=== PATIENT | female | born 1970 | race Caucasian/White ===

== ENCOUNTER → 2020-04-10 08:11 | Outpatient (CLI) | payer MEDICARE, SELFPAY ==
[2020-03-31 10:34] VITALS: BMI 27.4
--- NOTE | 2020-04-10 08:14 | MRI_ITS ---
STUDY: MRI CERVICAL SPINE WITHOUT CONTRAST REASON FOR EXAM: Female, 50 years old. Pain TECHNIQUE: Standardized fat and water weighted pulse sequences were obtained in the sagittal and axial planes. COMPARISON: [address] FINDINGS: Examination is mildly degraded due to metallic artifact of C4-C7 ACDF. Diagnostic information is available. However, vertebral bodies themselves are obscured. Craniocervical junction is intact and aligned. There is grade 1 anterolisthesis of C6 on C7, approximately 3 -- 4 mm. The rest of the spine is aligned. Diffuse marrow is normal. Prevertebral and posterior paraspinous soft tissues are normal. C2-C3 has patent canal and foramina. C3-C4 has patent canal and foramina. C4-C5 has patent canal and foramina. C5-C6 has patent canal and foramina. C6-C7 has uncinate and facet hypertrophy and disc and osteophyte. There is minor canal stenosis and mild impression on the ventral cord. Ventral CSF is effaced well dorsal CSF is preserved. Foramina are mildly stenotic. C7-T1 has patent canal and foramina. Spinal cord is normal in size and signal with minor flattening ventrally against the C6-C7 spondylosis. Appearance is stable since prior. MRI/Spine Cervical (Routine) IMPRESSION: 1. No acute findings. 2. Stable appearance since 2012. 3. Mild ventral impression on the cord at C6-C7 without thecal sac stenosis. 4. C4-C7 ACDF. If evaluation of hardware is desired refer to CT. 5. Mild age expected degenerative changes. Electronically Signed: Doretha Wong MD at 17:58 EST Tel , Service support ,
== END ==
LOC: MRI 08:13
PROVIDERS: PCP Family Medicine; Referring Provider Orthopaedic Surgery; Visit Provider Orthopaedic Surgery
DX: Z98.1 Arthrodesis status (principal)
CPT/HCPCS: 72141

== ENCOUNTER 2020-06-05 18:59 | Emergency (ER) | payer MEDICARE, SELFPAY ==
[2020-04-12 09:20] VITALS: BMI 27.4
[2020-06-05 19:00] VITALS: BP 167/120; PULSE 137; RESP 16; TEMP 36.9; O2SAT 98; BMI 27.4
--- NOTE | 2020-06-05 19:59 | EKG12_ITS ---
Test Reason : WEAKNESS Blood Pressure : / mmHG Vent. Rate : 130 BPM Atrial Rate : 130 BPM P-R Int : 138 ms QRS Dur : 078 ms QT Int : 316 ms P-R-T Axes : 075 067 041 degrees QTc Int : 465 ms Sinus tachycardia Right atrial enlargement Poor R wave progression Borderline ECG Confirmed by LILLY ROCHA, LONA ([id number]), technical editor AMELIA ORANTES ([id number]) on 06/08/2020 11:14:25 AM Referred By: FARAZ Confirmed By:LONA CARR MD
[2020-06-05 20:00] VITALS: BP 159/106
--- NOTE | 2020-06-05 20:00 | EDS_ITS ---
HPI <Dr. Ze Charles MD - Last Filed: 06/05/20 22:43> History of Present Illness Chief Complaint: Weakness Informant: patient Onset/Context/Timing Onset: Today Context: Gradual Onset Timing: Continuous Quality: fatigue Location: all over Current Severity: Severe Maximum Severity: Severe Worsened by: nothing Relieved by: nothing Associated Symptoms Associated Symptoms: dry mouth Narrative Narrative: Patient states she is feeling very fatigued. She has chronic pain in her neck after a fusion that did not go well and she states the chronic pain all over her body from her fibromyalgia is worse than the pain in her neck, but all of that is chronic and stable and not worse than usual. She has no other specific symptoms, see ROS. She has had no contact with anyone with Covid that she knows of. She has not had Covid that she knows of, and she had the first Pfizer vaccine several months ago, and skipped the second 1 because too busy. She admits that she is not really not had anything to drink all day today. She does not have a known history of high blood pressure. PFSH <Dr. Ze Charles MD - Last Filed: 06/05/20 22:43> [facility] Medical History Chronic pain Home Medications alprazolam 1 mg PO BID PRN PRN 01/20/16 [History Last Taken Unknown] oxycodone 10 mg PO Q6H PRN PRN 01/20/16 [History Last Taken 01/21/16 10:00] zolpidem 10 mg tablet 10 mg PO QHS PRN tab 03/31/20 [History Last Taken Unknown] milnacipran [Savella] 100 mg PO BID 06/05/20 [History Last Taken Unknown] Allergy/AdvReac Type Severity Reaction Status Date / Time tramadol [From Ultram] Allergy Vomiting Verified 01/23/16 07:45 acetaminophen AdvReac Upset Verified 01/23/16 07:45 [From Darvocet-N] Stomach propoxyphene AdvReac Upset Verified 01/23/16 07:45 [From Darvocet-N] Stomach Social History Smoking Status: Former smoker ROS <Dr. Ze Charles MD - Last Filed: 06/05/20 22:43> ROS ED Constitutional Constitutional ED: Reports malaise and weakness; Denies chills, fever(s) or sweats Eyes Eyes: Denies change in vision or diplopia ENT ENT ED: Denies rhinorrhea or sore throat Cardiovascular Cardiovascular: Denies chest pain or palpitations Respiratory/Chest Respiratory/Chest: Denies cough or dyspnea Gastrointestinal Gastrointestinal: Denies abdominal pain, diarrhea, nausea or vomiting Genitourinary Genitourinary ED: Denies dysuria or hematuria Musculoskeletal Musculoskeletal: Reports myalgias and neck pain; Denies back pain Integumentary Denies abscess or rash Neurologic Neurologic: Denies headache(s), paresthesias or weakness Psychiatric Psychiatric: Denies anxiety or suicidal thoughts EXAM <Dr. Ze Charles MD - Last Filed: 06/05/20 22:43> Physical Exam Const Vital Signs: 06/05/20 19:00 06/05/20 19:17 06/05/20 20:00 Temperature 98.4 F Temperature Source Temporal Pulse Rate 137 H Respiratory Rate 16 Respiratory Effort Normal Non-Labored Respiratory Pattern Normal Blood Pressure 167/120 H 159/106 H Blood Pressure Mean 135 123 Pulse Ox 98 Oxygen Delivery Method Room Air 06/05/20 20:59 06/05/20 22:02 Temperature Temperature Source Pulse Rate 117 H 114 H Respiratory Rate 15 15 Respiratory Effort Respiratory Pattern Blood Pressure 165/105 H 174/117 H Blood Pressure Mean 125 136 Pulse Ox 98 97 Oxygen Delivery Method Room Air Room Air Positive well nourished and well developed General Appearance ED: well developed and NAD HEENT Reports moist mucous membranes normocephalic and atraumatic Eyes PERRL and EOMs intact bilaterally Neck full ROM and supple Resp normal respiratory effort and clear to auscultation bilaterally Cardio regular rate, regular rhythm and no murmurs Rate: tachycardic GI non-tender and non-distended Auscultation: normoactive bowel sounds Palpation: soft Back/Spine no CVA tenderness General Back: other FROM Extremity normal to inspection General Extremety ED: Negative for edema, pulses abnormal or tenderness General Extremity: Negative for edema or pulses abnormal Neuro oriented x3, CN's II-XII intact bilaterally and no sensory deficits noted Sensorium / Orientation: awake and alert Motor Exam: strength 5/5 throughout Psych mental status grossly normal Mood & Affect: anxious Skin no rashes or lesions noted and no wounds <Dr. Mikael Valles MD - Last Filed: 06/05/20 22:56> Physical Exam Const Vital Signs: 06/05/20 19:00 06/05/20 19:17 06/05/20 20:00 Temperature 98.4 F Temperature Source Temporal Pulse Rate 137 H Respiratory Rate 16 Respiratory Effort Normal Non-Labored Respiratory Pattern Normal Blood Pressure 167/120 H 159/106 H Blood Pressure Mean 135 123 Pulse Ox 98 Oxygen Delivery Method Room Air 06/05/20 20:59 06/05/20 22:02 Temperature Temperature Source Pulse Rate 117 H 114 H Respiratory Rate 15 15 Respiratory Effort Respiratory Pattern Blood Pressure 165/105 H 174/117 H Blood Pressure Mean 125 136 Pulse Ox 98 97 Oxygen Delivery Method Room Air Room Air MDM <Dr. Ze Charles MD - Last Filed: 06/05/20 22:43> MDM MDM Narrative Medical decision making narrative: Patient has nonspecific symptoms of fatigue, she does not have symptoms of endorgan damage if her symptoms are related or caused by her high blood pressure. We rechecked it it is still elevated in the 160s, so considering this causal relationship, she was given clonidine 0.1 mg, 1 L of IV fluid, and observed. She started complaining of a severe increase in her whole body fibromyalgia pain and states that she forgot to take her Savella today which she takes twice daily for fibromyalgia, so she took one of her own Percocet 10 mg tablets and on reevaluation her pain is improved but she vomited, blood pressure has gone up to 174/117, and she states she has a bit of a headache now. Her heart rate is come down to around 105-110. She was ordered Reglan and hydralazine, both IV. Now, mother is stating that they had been checking her blood pressure for the last couple days intermittently, and they had systolic readings as high as 180 which is very unusual for her, which they did not relate in the initial interview. I am apprehensive about giving her IV narcotics at this time since I do not want to make her headache worse, although it is certainly possible that she is having a flareup of fibromyalgia which is causing her blood pressure to go up, but given this latter history I suspect it is the opposite. Lab Data Attestation: I reviewed the patient's lab results. Labs: Laboratory Results - last 24 hr 06/05/20 06/05/20 06/05/20 20:13 20:13 20:44 WBC 9.3 RBC 4.86 Hgb 15.3 H Hct 44.6 MCV 91.8 MCH 31.5 MCHC 34.3 RDW Std Deviation 41.2 RDW Coeff of Jade 12.3 Plt Count 267 MPV 9.1 Immature Gran % (Auto) 0.200 Neut % (Auto) 90.8 H Lymph % (Auto) 4.3 L Lyon % (Auto) 4.2 Eos % (Auto) 0.3 Baso % (Auto) 0.2 Absolute Neuts (auto) 8.4 H Absolute Lymphs (auto) 0.40 L Nucleated RBC % 0 Differential Comment SCANNED Sodium 138 Potassium 3.9 Chloride 105 Carbon Dioxide 27.0 Anion Gap 6 BUN 12 Creatinine 0.80 Estim Creat Clear Calc 71.03 Est GFR (MDRD) Af Amer 97 Est GFR (MDRD) Non-Af 81 BUN/Creatinine Ratio 15.1 Glucose 135 H Calcium 9.0 Troponin I < 0.015 Urine Color Yellow Urine Clarity Clear Urine pH 6.0 Ur Specific [place] 1.015 Urine Protein Negative Urine Glucose (UA) Normal Urine Ketones Negative Urine Occult Blood 250 H Urine Nitrite Negative Urine Bilirubin Negative Urine Urobilinogen Normal Ur Leukocyte Esterase Negative Urine RBC 0-5 SEEN Urine WBC 0-5 SEEN Ur Squamous Epith Cells 0-5 SEEN Urine Bacteria 0 SEEN Urine Mucus 0 SEEN EKG Initial EKG: Attestation: I personally reviewed and interpreted this EKG as follows: Interpretation: No Acute Injury Pattern and Sinus Tachycardia (otherwise normal) <Dr. Mikael Valles MD - Last Filed: 06/05/20 22:56> [facility] Lab Data Labs: Laboratory Results - last 24 hr 06/05/20 06/05/20 06/05/20 20:13 20:13 20:44 WBC 9.3 RBC 4.86 Hgb 15.3 H Hct 44.6 MCV 91.8 MCH 31.5 MCHC 34.3 RDW Std Deviation 41.2 RDW Coeff of Jade 12.3 Plt Count 267 MPV 9.1 Immature Gran % (Auto) 0.200 Neut % (Auto) 90.8 H Lymph % (Auto) 4.3 L Lyon % (Auto) 4.2 Eos % (Auto) 0.3 Baso % (Auto) 0.2 Absolute Neuts (auto) 8.4 H Absolute Lymphs (auto) 0.40 L Nucleated RBC % 0 Differential Comment SCANNED Sodium 138 Potassium 3.9 Chloride 105 Carbon Dioxide 27.0 Anion Gap 6 BUN 12 Creatinine 0.80 Estim Creat Clear Calc 71.03 Est GFR (MDRD) Af Amer 97 Est GFR (MDRD) Non-Af 81 BUN/Creatinine Ratio 15.1 Glucose 135 H Calcium 9.0 Troponin I < 0.015 Urine Color Yellow Urine Clarity Clear Urine pH 6.0 Ur Specific [place] 1.015 Urine Protein Negative Urine Glucose (UA) Normal Urine Ketones Negative Urine Occult Blood 250 H Urine Nitrite Negative Urine Bilirubin Negative Urine Urobilinogen Normal Ur Leukocyte Esterase Negative Urine RBC 0-5 SEEN Urine WBC 0-5 SEEN Ur Squamous Epith Cells 0-5 SEEN Urine Bacteria 0 SEEN Urine Mucus 0 SEEN Discharge Plan Triage Chief Complaint: Weakness ED Provider: Mikael Valles Dx/Rx/DC Orders Clinical Impression: Accelerated hypertension, Fibromyalgia, Generalized weakness Prescriptions: No Action zolpidem 10 mg tablet 10 mg PO QHS PRN (Reason: Sleep) RF: 0 alprazolam 1 MG tablet 1 mg PO BID PRN PRN (Reason: Anxiety) RF: 0 oxycodone 10 MG/0.5 ML concentrate 10 mg PO Q6H PRN PRN (Reason: Pain) RF: 0 Savella 100 mg Tablet 100 mg PO BID RF: 0 Primary Care Provider: Troy Amezquita Referrals: Troy Amezquita MD [Primary Care Provider] -
[2020-06-05] MEDS: 0.9% Normal Saline 1,000 ML 1000 ML IV (20:15)
[2020-06-05 20:24] LABS: Absolute Neutrophil Count 8.4 X10^3/uL (2.0-7.7); Basophil# 0.02 X10^3/uL; Basophil% 0.2 % (0-1); Eosinophil# 0.03 X10^3/uL; Eosinophils% 0.3 % (0-5); Hematocrit 44.6 % (37-47); Hemoglobin 15.3 g/dL (12.0-15.0); Lymphocyte % 4.3 % (19-41); Mean Corp Hgb Conc 34.3 g/dL (32-36); Mean Corpuscular Hgb 31.5 pg (27.0-32.0); Mean Corpuscular Volume 91.8 fL (81-99); Mean Platelet Vol. 9.1 fl (6.2-12.0); Monocyte# 0.39 X10^3/uL; Monocyte% 4.2 % (0-10); NRBC Flagged by Analyzer 0 % (0-5); Neutrophil # 8.44 X10^3/uL (2.7-7.7); Neutrophil % 90.8 % (47-70); POSITIVE DIFFERENTIAL YES; Platelet Count 267 K/mm3 (150-450); RBC Distribution Width CV 12.3 % (11.6-14.6); RBC Distribution Width SD 41.2 fl (35.1-43.9); Red Blood Count 4.86 M/mm3 (4.2-5.4); White Blood Count 9.3 K/mm3 (4.4-11.0)
[2020-06-05 20:27] LABS: Differential Indicated SCAN CRITERIA MET
[2020-06-05 20:41] LABS: Anion Gap 6 (5-15); BUN 12 mg/dL (7-18); BUN/Creat Ratio 15.1 RATIO (10-20); Chloride 105 mmol/L (98-107); EST Glomerular Filtration Rate 81 mL/min (>60); Est Glom Filt Rate - Afr Amer 97 mL/min (>60); Estimated Creatinine Clearance 71.03 ml/min; Glucose 135 mg/dL (74-106); Potassium 3.9 mmol/L (3.5-5.1); Sodium Level 138 mmol/L (136-145)
[2020-06-05 20:49] LABS: Bacteria 0 SEEN /hpf (None Seen); Mucous, Urine 0 SEEN /hpf (<or=2+)
[2020-06-05 20:51] LABS: Color, Urine Yellow (Yellow); Glucose, Dipstick Normal (Normal); Ketone-Dipstick Negative (Negative); Leukocyte Esterase-Dipstick Negative /ul (Negative); Nitrite-Dipstick Negative (Negative); Occult Blood-Urine 250 /ul (Negative); Protein-Dipstick Negative (Negative); Specific Gravity, Urine 1.015 (1.002-1.030); Urine Bilirubin Dipstick Negative (Negative); Urine Clarity Clear (Clear); Urine Urobilinogen Normal (Normal)
[2020-06-05 20:53] LABS: Differential Comment SCANNED
[2020-06-05 20:59] VITALS: BP 165/105; PULSE 117; RESP 15; O2SAT 98
[2020-06-05 21:02] LABS: Red Blood Cells-Urine 0-5 SEEN /hpf (0-5); Squamous Epithelial Cells - UA 0-5 SEEN /hpf (5-10); White Blood Cells 0-5 SEEN /hpf (0-5)
[2020-06-05] MEDS: cloNIDine HCl 0.1 MG Tablet PO (21:35)
[2020-06-05 22:02] VITALS: BP 174/117; PULSE 114; RESP 15; O2SAT 97
[2020-06-05] MEDS: Metoclopramide 10 MG/2 ML Vial 5 MG IV (22:30)
[2020-06-05] MEDS: hydrALAZINE 20 MG/ML Vial 10 MG IV (22:32)
[2020-06-05 23:53] VITALS: BP 181/106; PULSE 129; RESP 15; O2SAT 99
[2020-06-06] MEDS: HYDROmorphone 1 MG/ML Syringe IV (00:21)
[2020-06-06 00:25] VITALS: BP 175/117; PULSE 137; RESP 15; O2SAT 100
[2020-06-06 01:12] VITALS: BP 158/110
[2020-06-06] MEDS: DiphenhydrAMINE 50 MG/ML Syringe 25 MG IV (01:48)
[2020-06-06] MEDS: Metoclopramide 10 MG/2 ML Vial 5 MG IV (01:50)
[2020-06-06] MEDS: Ketorolac 30 MG/ML Syringe IV (01:51)
[2020-06-06 01:53] VITALS: BP 175/111; PULSE 127; RESP 15; O2SAT 95
[2020-06-06 02:40] VITALS: BP 175/111
== END 2020-06-06 02:50 | disposition home or self-care (01) ==
PROVIDERS: Emergency Medicine; Emergency Provider Emergency Medicine; PCP Family Medicine
DX: I10 Essential (primary) hypertension (principal); M79.7 Fibromyalgia; R53.1 Weakness; Z87.891 Personal history of nicotine dependence
CPT/HCPCS: 80048; 81001; 84484; 85025; 93005; 96374; 96375; 96376; 99283; J7030; A4216

== ENCOUNTER 2023-03-21 21:22 | Emergency (ER) | payer MEDICARE, SELFPAY ==
[2023-03-21 21:23] VITALS: BP 181/112; PULSE 115; RESP 18; TEMP 36.6; O2SAT 98; BMI 27.8
[2023-03-21 21:50] VITALS: BP 202/112; PULSE 96; RESP 10
--- NOTE | 2023-03-21 22:11 | CT_ITS ---
STUDY: CT BRAIN WITHOUT CONTRAST REASON FOR EXAM: Female, 53 years old. headache RADIATION DOSAGE (If Supplied By Facility): CTDIvol = ( 44.99 ) mGy, DLP = ( 779.24 ) mGycm TECHNIQUE: Transaxial CT imaging of the brain was performed without administration of intravenous contrast material. Individualized dose optimization techniques were used for this CT. COMPARISON: No relevant priors. FINDINGS: Normal soft tissue structures. Normal calvarium. Normal size ventricles and extra-axial spaces for the patient''s age. Normal white matter tracts of the cerebral hemispheres. Normal basal ganglia and thalami. Normal brainstem. Normal cerebellum. There is no intracranial hemorrhage. There are no findings of an acute ischemic infarction. Normal visualized paranasal sinuses. CT/Brain/Head without Contrast IMPRESSION: Normal unenhanced CT scan of the brain. Electronically Signed: Jose R Coello MD at 23:33 EST ,
--- NOTE | 2023-03-21 22:11 | EKG12_ITS ---
Test Reason : DYSRHYTHMIA Blood Pressure : / mmHG Vent. Rate : 083 BPM Atrial Rate : 083 BPM P-R Int : 172 ms QRS Dur : 112 ms QT Int : 376 ms P-R-T Axes : 071 059 028 degrees QTc Int : 441 ms Normal sinus rhythm Normal ECG Confirmed by Yazan Tai ([id number]), video editor AMELIA ORANTES ([id number]) on 03/22/2023 8:10:58 AM Referred By: Confirmed By:Yazan Tai
[2023-03-21] MEDS: Labetalol (Prefilled) 20 MG/4 ML 10 MG IV ×2 (22:28→23:51)
[2023-03-21] MEDS: cloNIDine HCl 0.1 MG Tablet 0.100000000000000006 MG PO (22:28)
--- OUTSIDE RECORDS SUMMARY | 2023-03-21 22:32 | XMS RPT_ITS | CCD ---
Author Name Unknown Address [address] [place] [address] [id number] [place] [address] Organization [facility] Care Team Providers Care Bus Operator Name Role Phone Devorah Stringer MD Primary Care Provider DEVORAH STRINGER Primary Care Unavailable JUANY ROACH Attending Unavailable Devorah Stringer MD Primary Care Provider FIDELINA, YASMIN Attending Unavailable DEVORAH STRINGER Primary Care Unavailable FIDELINA, YASMIN Attending Unavailable DEVORAH STRINGER Primary Care Unavailable FIDELINA, YASMIN Attending Unavailable DEVORAH STRINGER Primary Care Unavailable FIDELINA, YASMIN Attending Unavailable DEVORAH STRINGER Primary Care Unavailable FIDELINA, YASMIN Attending Unavailable DEVORAH STRINGER Primary Care Unavailable FIDELINA, YASMIN Attending Unavailable DEVORAH STRINGER Primary Care Unavailable MARLINE TOMAS Attending Unavailable DEVORAH STRINGER Primary Care Unavailable FIDELINA, YASMIN Attending Unavailable DEVORAH STRINGER Primary Care Unavailable FIDELINA, YASMIN Attending Unavailable DEVORAH STRINGER Primary Care Unavailable FIDELINA, YASMIN Attending Unavailable DEVORAH STRINGER Primary Care Unavailable FIDELINA, YASMIN Attending Unavailable DEVORAH STRINGER Primary Care Unavailable Allergies Allergy Classification Reported Allergen(s) Allergy Type Date of Onset Reaction(s) Facility (20 sources) traMADol; Translations: [TRAMADOL HCL] Drug Allergy 5 Vomiting [facility] Work Phone: (20 sources) Propoxyphene N-Acetaminophen Drug Intolerance 1 GI Upset [facility] (20 sources) Seasonal allergy; Translations: [SEASONAL ALLERGIES] Allergy to substance 6 Unknown [facility] (20 sources) traMADol; Translations: [TRAMADOL] Drug Allergy 5 Other: See Comments [facility] Medications Current Medications Medication Drug Class(es) Dates Sig (Normalized) Sig (Original) 168 hr buprenorphine 0.015 mg/hr transdermal system (20 sources) Partial Opioid Agonist Start: 03-01-2023 End: 03-29-2023 apply 1 dose transdermal route every week buprenorphine (BUTRANS) 15 mcg/hour patch Indications: Other chronic pain Apply 1 Patch as directed one time a week for 28 days. 4 Patch 0 03/01/2023 03/29/2023 Active Completed/Discontinued Medications Medication Drug Class(es) Dates Sig (Normalized) Sig (Original) ALPRAZolam 1 mg oral tablet (20 sources) Benzodiazepine take 1 tablet by rekha th once daily as needed ALPRAZolam (XANAX) 1 mg tablet Take 1 mg by mouth once daily as needed. 0 Active Problems Active Problems Problem Classification Problem Date Documented Da te Episodic/Chronic Anxiety disorders (20 sources) Panic disorder with agoraphobia; Translations: [Agoraphobia with panic disorder] Onset: 03-25-2007 09-06-2009 Chronic Complications of surgical procedures or medical care (1 source) Complication of procedure; Translations: [Complication of surgical and medical care, unspecified, initial encounter] Episodic Disorders of lipid metabolism (20 sources) Hyperlipidemia; Translations: [Hyperlipidemia, unspecified] Onset: 03-07-2007 09-06-2009 Chronic Essential hypertension (20 sources) Malignant hypertension; Translations: [Essential (primary) hypertension] Onset: 08-16-2021 08-16-2021 Chronic Headache; including migraine (20 sources) Migraine variants; Translations: [Other migraine, not intractable, without status migrainosus] Onset: 07-23-2006 08-02-2015 Chronic Menstrual disorders (20 sources) Excessive and frequent menstruation; Translations: [Excessive and frequent menstruation with regular cycle] Onset: 06-20-2007 09-06-2009 Chronic Mood disorders (20 sources) Recurrent major depressive episodes; Translations: [Major depressive disorder, recurrent, unspecified] Onset: 03-25-2007 09-06-2009 Chronic Osteoarthritis (20 sources) Degenerative joint disease involving multiple joints; Translations: [Polyosteoarthritis , unspecified] Onset: 07-12-2007 09-06-2009 Chronic Other aftercare (20 sources) Long-term current use of opiate analgesic drug; 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] Onset: 08-19-2021 Episodic Other connective tissue disease (1 source) Pain in right foot; Translations: [Foot pain, right] Onset: 12-07-2022 Episodic Other nervous system disorders (8 sources) Carpal tunnel syndrome; Translations: [Carpal tunnel syndrome, unspecified upper limb] Onset: 04-03-2014 04-03-2014 Chronic Other nervous system disorders (20 sources) Chronic pain syndrome; Translations: [Chronic pain syndrome] Onset: 01-31-2017 08-16-2021 Chronic Other nervous system disorders (20 sources) Chronic pain; Translations: [Other chronic pain] Onset: 02-16-2022 Chronic Other nervous system disorders (2 sources) Chronic pain syndrome; Translations: [Chronic pain syndrome] Onset: 09-14-2021 Chronic Other nervous system disorders (1 source) Other chronic pain; Translations: [Other chronic pain] Onset: 02-16-2022 Chronic Other non-traumatic joint disorders (1 source) Pain in right knee; Translations: [Pain in joint, lower leg] Episodic Other non-traumatic joint disorders (1 source) Shoulder pain; Translations: [Pain in right shoulder] Episodic Other non-traumatic joint disorders (1 source) Pain in right shoulder; Translations: [Pain in joint, shoulder region] 11-28-2022 Episodic Other screening for suspected conditions (not mental disorders or infectious disease) (5 sources) Patient encounter status; Translations: [Encounter for screening mammogram for malignant neoplasm of breast] Onset: 10-25-2015 Episodic Spondylosis; intervertebral disc disorders; other back problems (20 sources) Pain in cervical spine; Translations: [Cervical disc disorder, unspecified, unspecified cervical region] Onset: 10-11-2011 10-11-2011 Chronic Substance-related disorders (20 sources) Continuous opioid dependence; Translations: [Opioid dependence, uncomplicated] Onset: 04-12-2015 08-16-2021 Chronic Past or Other Problems Problem Classification Problem Date Documented Date Episodic/Chronic Calculus of urinary tract (20 sources) Kidney stone; Translations: [Calculus of kidney] Onset: 12-06-2006 09-06-2009 Episodic Complication of device; implant or graft (20 sources) Pseudarthrosis after fusion or arthrodesis; Translations: [Nonunion of arthrodesis] Onset: 07-23-2013 07-23-2013 Episodic Deficiency and other anemia (8 sources) Pernicious anemia; Translations: [Vitamin B12 deficiency anemia due to intrinsic factor deficiency] Onset: 05-20-2007 09-06-2009 Episodic Malaise and fatigue (20 sources) Asthenia; Translations: [Weakness] Onset: 08-16-2021 08-16-2021 Episodic Nutritional deficiencies (1 source) Cobalamin deficiency; Translations: [Deficiency of other specified B group vitamins] Onset: 04-12-2015 08-16-2021 Episodic Other aftercare (1 source) 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; Translations: [[facility]DC (current) use of opiate analgesic] Onset: 08-19-2021 Episodic Other connective tissue disease (20 sources) Fibromyalgia; Translations: [Fibromyalgia] Onset: 10-11-2011 10-11-2011 Episodic Other connective tissue disease (20 sources) History of cervical spine fusion; Translations: [Arthrodesis status] Onset: 07-03-2013 07-03-2013 Episodic Other connective tissue disease (20 sources) Disorder of rotator cuff; Translations: [Unspecified rotator cuff tear or rupture of unspecified shoulder, not specified as traumatic] Onset: 08-24-2020 08-16-2021 Episodic Other connective tissue disease (2 sources) Fibromyalgia; Translations: [Fibromyalgia] Onset: 10-11-2011 Episodic Other connective tissue disease (1 source) Unspecified rotator cuff tear or rupture of unspecified shoulder, not specified as traumatic; Translations: [Rotator cuff syndrome, unspecified laterality] Onset: 08-16-2021 Episodic Spondylosis; intervertebral disc disorders; other back problems (20 sources) Cervical radiculitis; Translations: [Radiculopathy, cervical region] Onset: 07-03-2013 07-03-2013 Episodic Results Test Name Value Interpretation Reference Range Facil ity Vital Signs Date Time Vital Sign Value Performing Clinician Faci litaleksandar 11-18-2021 12:10040 Body height 165.1 cm Robb Cleaning PA-C Work Phone: [facility] 11-18-2021 12:10-040 Body weight 68.04 kg Robb Cleaning PA-C Work Phone: [facility] 11-18-2021 12:10-0400 Diastolic blood pressure 79 mm[Hg] Robb Cleaning PA-C Work Phone: [facility] 11-18-2021 12:10-0400 Heart rate 124 /min Robb Cleaning PA-C Work Phone: [facility] 11-18-2021 12:10-0400 SaO2% (BldA) [Mass fraction] 100 % Robb Cleaning PA-C Work Phone: [facility] 11-18-2021 12:10-0400 Systolic blood pressure 112 mm[Hg] Robb Cleaning PA-C Work Phone: [facility] 11-14-2021 10:11-0400 Body height 164.6 cm Jessica Henderson DO Work Phone: [facility] 11-14-2021 10:11-0400 Body weight 68.95 kg Jessica Henderson DO Work Phone: [facility] 11-14-2021 10:11-0400 Diastolic blood pressure 88 mm[Hg] Jessica Henderson DO Work Phone: [facility] 11-14-2021 10:11-0400 Heart rate 120 /min Jessica Henderson DO Work Phone: [facility] 11-14-2021 10:11-0400 Respiratory rate 19 /min Jessica Henderson DO Work Phone: [facility] 11-14-2021 10:11-0400 SaO2% (BldA) [Mass fraction] 98 % Jessica Henderson DO Work Phone: [facility] 11-14-2021 10:11-0400 Systolic blood pressure 135 mm[Hg] Jessica Henderson DO Work Phone: [facility] 10-28-2021 11:06-0400 Body weight 70.31 kg Juany Roach HAT BLOCKING MACHINE OPERATOR.SAMPLE STEAMER Work Phone: [facility] 10-28-2021 11:06-0400 Diastolic blood pressure 92 mm[Hg] Juany Roach HAT BLOCKING MACHINE OPERATOR.SAMPLE STEAMER Work Phone: [facility] 10-28-2021 11:06-0400 Heart rate 109 /min Juany Tannhof HAT BLOCKING MACHINE OPERATOR.SAMPLE STEAMER Work Phone: [facility] 10-28-2021 11:06-0400 Respiratory rate 16 /min Juany Tannhof HAT BLOCKING MACHINE OPERATOR.SAMPLE STEAMER Work Phone: [facility] 10-28-2021 11:06-0400 SaO2% (BldA) [Mass fraction] 97 % Juany Morrohof HAT BLOCKING MACHINE OPERATOR.SAMPLE STEAMER Work Phone: [facility] 10-28-2021 11:06-0400 Systolic blood pressure 122 mm[Hg] Juany Tannhof HAT BLOCKING MACHINE OPERATOR.SAMPLE STEAMER Work Phone: [facility] 12-21-2020 13:35-0500 Body weight 69.4 kg Yasmin Fidelina HAT BLOCKING MACHINE OPERATOR.SAMPLE STEAMER Work Phone: [facility] 12-21-2020 13:35-0500 Diastolic blood pressure 91 mm[Hg] Yasmin Fidelina HAT BLOCKING MACHINE OPERATOR.SAMPLE STEAMER Work Phone: [facility] 12-21-2020 13:35-0500 Heart rate 107 /min Yasmin Fidelina HAT BLOCKING MACHINE OPERATOR.SAMPLE STEAMER Work Phone: [facility] 12-21-2020 13:35-0500 Respiratory rate 19 /min Yasmin Fidelina HAT BLOCKING MACHINE OPERATOR.SAMPLE STEAMER Work Phone: [facility] 12-21-2020 13:35-0500 SaO2% (BldA) [Mass fraction] 97 % Yasmin Fidelina HAT BLOCKING MACHINE OPERATOR.SAMPLE STEAMER Work Phone: [facility] 12-21-2020 13:35-0500 Systolic blood pressure 131 mm[Hg] Yasmin Fidelina HAT BLOCKING MACHINE OPERATOR.SAMPLE STEAMER Work Phone: [facility] Encounters Encounter Date Encounter Type Care Provider Facility Start: 03-13-2023 Telephone encounter Yasmin saleemo HAT BLOCKING MACHINE OPERATOR.SAMPLE STEAMER Work Phone: Pain Management Procedures Date Procedure Procedure Detail Performing Clinician Start: 01-14-2018 Lipid 1996 panel - S serena or Plasma Yasmin Akbaro HAT BLOCKING MACHINE OPERATOR.SAMPLE STEAMER Work Phone: Start: 10-13-2011 Mammography Yasmin de M arco HAT BLOCKING MACHINE OPERATOR.SAMPLE STEAMER Work Phone: Plan of Treatment Date Care Activity Detail Author Start: 12-08-2023 Covid-19 Vaccine (#1) Covid-19 Vacci ne (#1) [facility] Immunizations Immunization Date Immunization Notes Care Provider Fa cility 03-18-2020 influenza, injectabl e, quadrivalent, contains preservative Yasmin de Manish HAT BLOCKING MACHINE OPERATOR.SAMPLE STEAMER Work Phone: [facility] 03-18-2020 influenza virus vaccine, unspecified formulation Yasmin Fidelina HAT BLOCKING MACHINE OPERATOR.SAMPLE STEAMER Work Phone: [facility] 12-04-2017 influenza, injectabl e, quadrivalent, preservative free Yasmin Fidelina HAT BLOCKING MACHINE OPERATOR.SAMPLE STEAMER Work Phone: [facility] 12-04-2017 influenza, seasonal, injectable Yasmin de Manish HAT BLOCKING MACHINE OPERATOR.SAMPLE STEAMER Work Phone: [facility] 11-04-2014 influenza, injectabl e, quadrivalent, contains preservative Yasmin de Manish HAT BLOCKING MACHINE OPERATOR.SAMPLE STEAMER Work Phone: [facility] 11-04-2014 influenza, seasonal, injectable Yasmin Fidelina HAT BLOCKING MACHINE OPERATOR.SAMPLE STEAMER Work Phone: [facility] 12-11-2013 influenza, seasonal, injectable Yasmin de Manish HAT BLOCKING MACHINE OPERATOR.SAMPLE STEAMER Work Phone: [facility] 09-13-2006 tetanus and diphther ia toxoids, adsorbed, preservative free, for adult use (2 Lf of tetanus toxoid and 2 Lf of diphtheria toxoid) Yasmin de Manish HAT BLOCKING MACHINE OPERATOR.SAMPLE STEAMER Work Phone: [facility] Work Phone: Payers Date Payer Category Payer Medicare [employer] [place] [id number] 2019-Present [phone] [address] [place] [address] [facility] [id number] 2019 Medicare [employer] [place] [employer] [place] [id number] 2019-Present [phone] [address] [place] [address] HMO [id number] 2019 Medicare [id number] Social History Date Type Detail Facility Start: 06-07-2011 End: 10-28-2021 Tobacco smoking status NHIS Ex-smoker [facility] End: 02-05-2001 History of tobacco use Current smoker [facility] End: 02-05-2001 History of tobacco use Cigarette Smoker [facility] Start: 07-29-2020 End: 03-01-2023 Alcohol intake Current drinker of alcohol (finding) [facility] Start: 07-29-2020 End: 06-16-2022 Alcohol intake [facility] Start: 06-19-2007 History SDOH Alcohol Comment rare [facility] Start: 1970 Sex Assigned At Female C [facility] Start: 06-07-2011 End: 10-28-2021 Tobacco use and exposure Smokeless tobacco non-user [facility] Start: 09-13-2021 End: 09-23-2021 Exposure to SARS-CoV-2 (event) Unable to assess [facility] Work Phone: Start: 10-17-2021 End: 11-18-2021 Exposure to SARS-CoV-2 (event) Not sure [facility] Start: 06-16-2022 End: 08-17-2022 Tobacco use panel [facility] Adult Depression Screening Assessment 0 [facility] Start: 02-23-2021 Gender identity Identifies as female gender (finding) [facility] Start: 02-23-2021 Sexual orientation Heterosexual (shalom bearden) [facility] Has the [employer], [employer], [employer], or [employer] threatened to shut off services in your home in past 12Mo No [facility] Are you now , , , , never or living with a partner? [facility] How often to you hav e a drink containing alcohol? Never [facility] How hard is it for y ou to pay for the very basics like food, housing, medical care, and heating Somewhat hard [facility] Do you feel stress - tense, restless, nervous, or anxious, or unable to sleep at night because your mind is troubled all the time - these days [OSQ] Very much [facility] (I/We) worried wheth er (my/our) food would run out before (I/we) got money to buy more. Sometimes true [facility] The food that (I/we) bought just didn't last, and (I/we) didn't have money to get more. Never true [facility] Clinical Notes 02-15-2009 to 03-13-2023 Telephone Encounter - Barbara Rasheed RN - 03/13/2023 8:47 AM ESTTelephone Encounter - Yasmin Kitchen APRN.CNP - 03/13/2023 7:20 AM Yasmin Cervantes APRN.CNP - 11/09/2022 8:15 AM EDT Note Date & Type Note Facility 03-13-2023 Miscellaneous Notes LMOM for pt to call the office back. My Chart message also sent. Barbara Rasheed RN March 13, 2023 8:48 AM Please call the patient for a UDS and to sign pain agreement. Order entered. Thanks documented in this encounter [facility] 03-01-2023 Note HNO ID: [id number] Author: YASMIN KITCHEN APRN.CNP Service: ? Author Type: Nurse Practitioner Type: Progress Notes Filed: 03/01/2023 09:37 Note Text: This video visit was performed via [employer] Video Visit. Patient consented to receive health care services via virtual visit for this encounter Provider Location: Non-[facility] Facility Patient Location: Patient Home or Place of Residence I have communicated my name and active licensure. The patient's identity and physical location were verified at the time of this visit. Either the patient or their legal risk control representative has been informed of the risks and benefits of -- and alternatives to -- treatment through a remote evaluation and consents to proceed with the evaluation remotely. Chief Complaint: Pain ___ History of Present Illness: Kelly Baldwin is a 53 year old year old female being seen at [facility] for a evaluation and/or management of her chronic pain. The patient was last seen virtually on 01/26/2023. She states that since the last visit symptoms have been stable. Her medical history has not changed and she denies any hospital stays or ER visits. VAS: 7/10 Pain location: neck pain, shoulders and right arm pain Timing: constant Severity: moderate Quality: aching, throbbing, sharp, burning Radiation: yes, down into shoulders/arms both arms Numbness: yes, intermittently in the hands/fingers Weakness: denies Falls: denies Alleviating Factors: pain medications, to some degree, rest Aggravating Factors: increased activity, abrupt turning of the head The patient denies any bowel or bladder dysfunction. The patient is currently prescribed butrans patch, Oxycodone, flexeril, savella and Imitrex nasal spray from our office. The last dose of Oxycodone was taken today and butrans patch is located on her right arm . The medications are partially effective. The OARRS report has been reviewed and is consistent with the patients medical history and medication intake. Last Opioid agreement effective date: 03/17/2022 Last UDS: Reviewed - No inconsistencies noted. 10/26/22 UDS INCONSISTENT(+)Zolpidem Summary Report Date Value Ref Range Status 10/26/2022 FINAL Final Comment: ==== Opiate Class, MS, Ur RFX Oxycodone Class, MS, Ur RFX ToxAssure Flex 23, Ur ==== Test Result Flag Units Drug Present Alpha-hydroxyalprazolam 77 ng/mg creat Alpha-hydroxyalprazolam is an expected metabolite of alprazolam. Source of alprazolam is a scheduled prescription medication. Oxycodone 3977 ng/mg creat Oxymorphone 1588 ng/mg creat Noroxycodone 6977 ng/mg creat Noroxymorphone 627 ng/mg creat Sources of oxycodone are scheduled prescription medications. Oxymorphone, noroxycodone, and noroxymorphone are expected metabolites of oxycodone. Oxymorphone is also available as a scheduled prescription medication. Buprenorphine 15 ng/mg creat Sources of buprenorphine include scheduled prescription medications. Zolpidem PRESENT Zolpidem Acid PRESENT Zolpidem acid is an expected metabolite of zolpidem. ==== Test Result Flag Units Ref Range Creatinine 26 mg/dL >=20 ==== Declared Medications: Medication list was not provided. ==== For clinical consultation, please call . ==== Chronic Pain Functional Assessment Tools Pain Disability Index: Pain Disability Index 12/31/2022 02/28/2023 Family/Home Responsibilities: This category includes chores or duties performed around the house (e.g. yard work), errands or favors for other family members (e.g. driving the children to school) 7 7 Recreation: This category includes hobbies, sports, and other similar leisure time activities 7 8 Social Activity: This category refers to activities which involve participation with friends and acquaintances, other than family members. It includes parties, theater, concerts, dinning out, and other social functions 7 9 Occupation: This category refers to activities that are a part of or directly related to ones' job. This includes non-paying jobs as well, such as that of a housewife or volunteer worker 7 8 Sexual Behavior: This category refers to the frequency and quality of one's sex life 8 9 Self Care: This category includes activities which involve personal maintenance and independent daily living (e.g. taking a shower, driving, getting dress, etc) 2 5 Life Support Activity: This category refers to basic-life supporting behaviors such (more content not included)... [facility] 01-26-2023 Note HNO ID: [id number] Author: Yasmin Kitchen APRN.SAMPLE STEAMER Service: ? Author Type: Nurse Practitioner Type: Progress Notes Filed: 01/26/2023 2:13 PM Note Text: This video visit was performed via [employer] Video Visit. Patient consented to receive health care services via virtual visit for this encounter Provider Location: [facility] Patient Location: Patient Home or Place of Residence I have communicated my name and active licensure. The patient's identity and physical location were verified at the time of this visit. Either the patient or their legal risk control representative has been informed of the risks and benefits of -- and alternatives to -- treatment through a remote evaluation and consents to proceed with the evaluation remotely. Chief Complaint: Pain ___ History of Present Illness: Kelly Baldwin is a 53 year old year old female being seen at [facility] for a evaluation and/or management of her chronic pain. The patient was last seen virtually on 01/02/2023. She states that since the last visit symptoms have been stable. She has been feeling ill. Her medical history has not changed and she denies any hospital stays or ER visits. VAS: 6/10 Pain location: neck pain, shoulders and right arm pain Timing: constant Severity: moderate Quality: aching, throbbing, sharp, burning Radiation: yes, down into shoulders/arms both arms Numbness: yes, intermittently in the hands/fingers Weakness: denies Falls: denies Alleviating Factors: pain medications, to some degree, rest Aggravating Factors: increased activity, abrupt turning of the head The patient denies any bowel or bladder dysfunction. The patient is currently prescribed butrans patch, Oxycodone, flexeril, savella and Imitrex nasal spray from our office. The last dose of Oxycodone was taken last night and butrans patch is located on her left arm . The medications are partially effective. The OARRS report has been reviewed and is consistent with the patients medical history and medication intake. Last Opioid agreement effective date: 03/17/2022 Last UDS: Reviewed - No inconsistencies noted. 10/26/22 UDS INCONSISTENT(+)Zolpidem Summary Report Date Value Ref Range Status 10/26/2022 FINAL Final Comment: ==== Opiate Class, MS, Ur RFX Oxycodone Class, MS, Ur RFX ToxAssure Flex 23, Ur ==== Test Result Flag Units Drug Present Alpha-hydroxyalprazolam 77 ng/mg creat Alpha-hydroxyalprazolam is an expected metabolite of alprazolam. Source of alprazolam is a scheduled prescription medication. Oxycodone 3977 ng/mg creat Oxymorphone 1588 ng/mg creat Noroxycodone 6977 ng/mg creat Noroxymorphone 627 ng/mg creat Sources of oxycodone are scheduled prescription medications. Oxymorphone, noroxycodone, and noroxymorphone are expected metabolites of oxycodone. Oxymorphone is also available as a scheduled prescription medication. Buprenorphine 15 ng/mg creat Sources of buprenorphine include scheduled prescription medications. Zolpidem PRESENT Zolpidem Acid PRESENT Zolpidem acid is an expected metabolite of zolpidem. ==== Test Result Flag Units Ref Range Creatinine 26 mg/dL >=20 ==== Declared Medications: Medication list was not provided. ==== For clinical consultation, please call . ==== Chronic Pain Functional Assessment Tools Pain Disability Index: Pain Disability Index 11/09/2022 12/31/2022 Family/Home Responsibilities: This category includes chores or duties performed around the house (e.g. yard work), errands or favors for other family members (e.g. driving the children to school) 5 7 Recreation: This category includes hobbies, sports, and other similar leisure time activities 6 7 Social Activity: This category refers to activities which involve participation with friends and acquaintances, other than family members. It includes parties, theater, concerts, dinning out, and other social functions 7 7 Occupation: This category refers to activities that are a part of or directly related to ones' job. This includes non-paying jobs as well, such as that of a housewife or volunteer worker 7 7 Sexual Behavior: This category refers to the frequency and quality of one's sex life 4 8 Self Care: This category includes activities which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 zolpidem (AMBIEN) 10 mg ORAL Tab Take 1 tablet by mouth at bedtime as needed. No current facility-administered medications for this visit. I have reviewed the nurses notes and I am aware of the family/social history. Since the last evaluation the medical history has not changed. PHYSICAL EXAMINATION: VIDEO EXAM: (performed via video enabled technology) GENERAL: alert and appropriate, in no distress, well-hydrated, well nourished and happy, smiling, interactive HEAD: normocephalic, no abnormality or lesion noted RESPIRATORY: breathing non-labored NEUROLOGIC: no obvious deficit ASSESSMENT: Patient is stable. Chronic pain is persistent. Medications are helping Kelly Baldwin to have an improved quality of life. Patient compliance with Opioid Contract: patient is currently compliant Encounter Diagnosis ICD-10-CM 1. Chronic pain syndrome G89.4 oxyCODONE IR (ROXICODONE) 10 mg tab fentaNYL (DURAGESIC) 25 mcg/hr 2. Cervical back pain with evidence of disc disease M50.90 3. Fibromyalgia M79.7 4. [facility]DC (current) use of opiate analgesic Z79.891 5. Migraine variant G43.809 SUMAtriptan (IMITREX) 20 mg/actuation nasal spray PLAN: The patient understands the goal of our treatment is a reduction in pain and/or an improved level of functioning with activities of daily living. If at any time the patient does not feel the medications are helping them to achieve these goals, the medications may be discontinued. The patient reports a reduction in pain and/or an improved level of functioning with activities of daily living, denies any significant adverse effects, is compliant with the pain management agreement and there are no signs of medication misuse, abuse or diversion; therefore, the medications will be continued. Continue Fentanyl patches 25 mcg change every 72 hours Continue TENS unit. Continue Oxycodone Continue OTC stool softeners for OIC symptoms. Continue Imitrex nasal spray Continue Flexeril PRN Continue Savella. Order repeat b/l shoulder injections Follow up in 1 month Yasmin Kitchen APRN.GENIE documented in this encounter [facility] 08-19-2021 Instructions Yasmin Kitchen APRN.GENIE - 08/19/2021 10:30 AM EDT Continue Fentanyl patches 25 mcg change every 72 hours Continue TENS unit. Continue Oxycodone Continue OTC stool softeners for OIC symptoms. Continue Imitrex nasal spray Continue Flexeril PRN Continue Savella. Order b/l shoulder injections Follow up in 1 month documented in this encounter [facility] documented as of this encounter (statuses as of 05/20/2021) [facility]2010 History of Past illness Narrative* Problem Noted Date Resolved Date Routine general medical exam ination at a health care facility 02/15/2009 03/11/2012 Overview: 02/15/2009, from [facility] Routine gynecological examination 02/15/2009 03/11/2012 Overview: Dr. Rod, [facility], [facility] [place] Pain in joint, shoulder region 12/24/2007 0 02/15/2009 Cervicalgia 12/24/2007 02/15/2009 Lump or mass in breast 09/13/2006 3 Overview: May 13: repeat diagnostic in 6 months Bipolar I disorder, most rec ent episode (or current) unspecified 03/25/2007 Temporomandibular joint disorders, unspecified 02/15/2009 documented as of this encounter (statuses as of 05/26/2021) [facility] History of Past illness Narrative* Problem Noted Date Resolved Date Routine general medical exam ination at a health care facility 02/15/2009 03/11/2012 Overview: 02/15/2009, from [facility] Routine gynecological examination 02/15/2009 03/11/2012 Overview: Dr. Rod, [facility], [facility] [place] Pain in joint, shoulder region 12/24/2007 0 02/15/2009 Cervicalgia 12/24/2007 02/15/2009 Lump or mass in breast 09/13/2006 3 Overview: May 13: repeat diagnostic in 6 months Bipolar I disorder, most rec ent episode (or current) unspecified 03/25/2007 Temporomandibular joint disorders, unspecified 02/15/2009 documented as of this encounter (statuses as of 06/02/2021) [facility] History of Past illness Narrative* Problem Noted Date Resolved Date Routine general medical exam ination at a health care facility 02/15/2009 03/11/2012 Overview: 02/15/2009, from [facility] Routine gynecological examination 02/15/2009 03/11/2012 Overview: Dr. Rod, [facility], [facility] [place] Pain in joint, shoulder region 12/24/2007 0 02/15/2009 Cervicalgia 12/24/2007 02/15/2009 Lump or mass in breast 09/13/2006 3 Overview: May 13: repeat diagnostic in 6 months Bipolar I disorder, most rec ent episode (or current) unspecified 03/25/2007 Temporomandibular joint disorders, unspecified 02/15/2009 documented as of this encounter (statuses as of 06/23/2021) [facility] History of Past illness Narrative* Problem Noted Date Resolved Date Routine general medical exam ination at a health care facility 02/15/2009 03/11/2012 Overview: 02/15/2009, from [facility] Routine gynecological examination 02/15/2009 03/11/2012 Overview: Dr. Rod, [facility], [facility] [place] Pain in joint, shoulder region 12/24/2007 0 02/15/2009 Cervicalgia 12/24/2007 02/15/2009 Lump or mass in breast 09/13/2006 3 Overview: May 13: repeat diagnostic in 6 months Bipolar I disorder, most rec ent episode (or current) unspecified 03/25/2007 Temporomandibular joint disorders, unspecified 02/15/2009 documented as of this encounter (statuses as of 07/21/2021) [facility] History of Past illness Narrative* Problem Noted Date Resolved Date Routine general medical exam ination at a health care facility 02/15/2009 03/11/2012 Overview: 02/15/2009, from [facility] Routine gynecological examination 02/15/2009 03/11/2012 Overview: Dr. Rod, [facility], [facility] [place] Pain in joint, shoulder region 12/24/2007 0 02/15/2009 Cervicalgia 12/24/2007 02/15/2009 Lump or mass in breast 09/13/2006 3 Overview: May 13: repeat diagnostic in 6 months Bipolar I disorder, most rec ent episode (or current) unspecified 03/25/2007 Temporomandibular joint disorders, unspecified 02/15/2009 documented as of this encounter (statuses as of 07/23/2021) [facility] History of Past illness Narrative* Problem Noted Date Resolved Date Routine general medical exam ination at a health care facility 02/15/2009 03/11/2012 Overview: 02/15/2009, from [facility] Routine gynecological examination 02/15/2009 03/11/2012 Overview: Dr. Rod, [facility], [facility] [place] Pain in joint, shoulder region 12/24/2007 0 02/15/2009 Cervicalgia 12/24/2007 02/15/2009 Lump or mass in breast 09/13/2006 3 Overview: May 13: repeat diagnostic in 6 months Bipolar I disorder, most rec ent episode (or current) unspecified 03/25/2007 Temporomandibular joint disorders, unspecified 02/15/2009 documented as of this encounter (statuses as of 08/08/2021) [facility] History of Past illness Narrative* Problem Noted Date Resolved Date Routine general medical exam ination at a health care facility 02/15/2009 03/11/2012 Overview: 02/15/2009, from [facility] Routine gynecological examination 02/15/2009 03/11/2012 Overview: Dr. Rod, [facility], [facility] [place] Pain in joint, shoulder region 12/24/2007 0 02/15/2009 Cervicalgia 12/24/2007 02/15/2009 Lump or mass in breast 09/13/2006 3 Overview: May 13: repeat diagnostic in 6 months Bipolar I disorder, most rec ent episode (or current) unspecified 03/25/2007 Temporomandibular joint disorders, unspecified 02/15/2009 documented as of this encounter (statuses as of 08/16/2021) [facility] History of Past illness Narrative* Problem Noted Date Resolved Date Routine general medical exam ination at a health care facility 02/15/2009 03/11/2012 Overview: 02/15/2009, from [facility] Sh[facility] Routine gynecological examination 02/15/2009 03/11/2012 Overview: Dr. Rod, [facility] [place] Pain in joint, shoulder region 12/24/2007 0 02/15/2009 Cervicalgia 12/24/2007 02/15/2009 Lump or mass in breast 09/13/2006 3 Overview: May 13: repeat diagnostic in 6 months Bipolar I disorder, most rec ent episode (or current) unspecified 03/25/2007 Temporomandibular joint disorders, unspecified 02/15/2009 documented as of this encounter (statuses as of 08/19/2021) [facility] History of Past illness Narrative* Problem Noted Date Resolved Date Routine general medical exam ination at a health care facility 02/15/2009 03/11/2012 Overview: 02/15/2009, [facility] Routine gynecological examination 02/15/2009 03/11/2012 Overview: Dr. Rod, [facility] [place] Pain in joint, shoulder region 12/24/2007 0 02/15/2009 Cervicalgia 12/24/2007 02/15/2009 Lump or mass in breast 09/13/2006 3 Overview: May 13: repeat diagnostic in 6 months Bipolar I disorder, most rec ent episode (or current) unspecified 03/25/2007 Temporomandibular joint disorders, unspecified 02/15/2009 documented as of this encounter (statuses as of 09/14/2021) [facility] History of Past illness Narrative* Problem Noted Date Resolved Date Routine general medical exam ination at a health care facility 02/15/2009 03/11/2012 Overview: 02/15/2009, [facility] Routine gynecological examination 02/15/2009 03/11/2012 Overview: Dr. Rod, [facility], [facility] [place] Pain in joint, shoulder region 12/24/2007 0 02/15/2009 Cervicalgia 12/24/2007 02/15/2009 Lump or mass in breast 09/13/2006 3 Overview: May 13: repeat diagnostic in 6 months Bipolar I disorder, most rec ent episode (or current) unspecified 03/25/2007 Temporomandibular joint disorders, unspecified 02/15/2009 documented as of this encounter (statuses as of 10/20/2021) [facility] History of Past illness Narrative* Problem Noted Date Resolved Date Routine general medical exam ination at a health care facility 02/15/2009 03/11/2012 Overview: 02/15/2009, from [facility] Routine gynecological examination 02/15/2009 03/11/2012 Overview: Dr. Rod, [facility], [facility] [place] Pain in joint, shoulder region 12/24/2007 0 02/15/2009 Cervicalgia 12/24/2007 02/15/2009 Lump or mass in breast 09/13/2006 3 Overview: May 13: repeat diagnostic in 6 months Bipolar I disorder, most rec ent episode (or current) unspecified 03/25/2007 Temporomandibular joint disorders, unspecified 02/15/2009 documented as of this encounter (statuses as of 10/28/2021) [facility] History of Past illness Narrative* Problem Noted Date Resolved Date Routine general medical exam ination at a health care facility 02/15/2009 03/11/2012 Overview: 02/15/2009, from [facility] Routine gynecological examination 02/15/2009 03/11/2012 Overview: Dr. Rod, [facility] [place] Pain in joint, shoulder region 12/24/2007 0 02/15/2009 Cervicalgia 12/24/2007 02/15/2009 Lump or mass in breast 09/13/2006 3 Overview: May 13: repeat diagnostic in 6 months Bipolar I disorder, most rec ent episode (or current) unspecified 03/25/2007 Temporomandibular joint disorders, unspecified 02/15/2009 documented as of this encounter (statuses as of 11/03/2021) [facility] History of Past illness Narrative* Problem Noted Date Resolved Date Routine general medical exam ination at a health care facility 02/15/2009 03/11/2012 Overview: 02/15/2009, from [facility] M[facility] Routine gynecological examination 02/15/2009 03/11/2012 Overview: Dr. Rod, [facility] [place] Pain in joint, shoulder region 12/24/2007 0 02/15/2009 Cervicalgia 12/24/2007 02/15/2009 Lump or mass in breast 09/13/2006 3 Overview: May 13: repeat diagnostic in 6 months Bipolar I disorder, most rec ent episode (or current) unspecified 03/25/2007 Temporomandibular joint disorders, unspecified 02/15/2009 documented as of this encounter (statuses as of 11/10/2021) [facility] History of Past illness Narrative* Problem Noted Date Resolved Date Routine general medical exam ination at a health care facility 02/15/2009 03/11/2012 Overview: 02/15/2009, from [facility] Routine gynecological examination 02/15/2009 03/11/2012 Overview: Dr. Rod, [facility], [facility] [place] Pain in joint, shoulder region 12/24/2007 0 02/15/2009 Cervicalgia 12/24/2007 02/15/2009 Lump or mass in breast 09/13/2006 3 Overview: May 13: repeat diagnostic in 6 months Bipolar I disorder, most rec ent episode (or current) unspecified 03/25/2007 Temporomandibular joint disorders, unspecified 02/15/2009 documented as of this encounter (statuses as of 11/14/2021) [facility] History of Past illness Narrative* Problem Noted Date Resolved Date Routine general medical exam ination at a health care facility 02/15/2009 03/11/2012 Overview: 02/15/2009, from [facility] Routine gynecological examination 02/15/2009 03/11/2012 Overview: Dr. Rod, [facility] [place] Pain in joint, shoulder region 12/24/2007 0 02/15/2009 Cervicalgia 12/24/2007 02/15/2009 Lump or mass in breast 09/13/2006 3 Overview: May 13: repeat diagnostic in 6 months Bipolar I disorder, most rec ent episode (or current) unspecified 03/25/2007 Temporomandibular joint disorders, unspecified 02/15/2009 documented as of this encounter (statuses as of 11/16/2021) [facility] History of Past illness Narrative* Problem Noted Date Resolved Date Routine general medical exam ination at a health care facility 02/15/2009 03/11/2012 Overview: 02/15/2009, from [employer] Routine gynecological examination 02/15/2009 03/11/2012 Overview: Dr. Rod, [facility], [facility] [place] Pain in joint, shoulder region 12/24/2007 0 02/15/2009 Cervicalgia 12/24/2007 02/15/2009 Lump or mass in breast 09/13/2006 3 Overview: May 13: repeat diagnostic in 6 months Bipolar I disorder, most rec ent episode (or current) unspecified 03/25/2007 Temporomandibular joint disorders, unspecified 02/15/2009 documented as of this encounter (statuses as of 11/18/2021) [facility] History of Past illness Narrative* Problem Noted Date Resolved Date Routine general medical exam ination at a health care facility 02/15/2009 03/11/2012 Overview: 02/15/2009, from [employer] Routine gynecological examination 02/15/2009 03/11/2012 Overview: Dr. Rod, [facility], [facility] [place] Pain in joint, shoulder region 12/24/2007 0 02/15/2009 Cervicalgia 12/24/2007 02/15/2009 Lump or mass in breast 09/13/2006 3 Overview: May 13: repeat diagnostic in 6 months Bipolar I disorder, most rec ent episode (or current) unspecified 03/25/2007 Temporomandibular joint disorders, unspecified 02/15/2009 documented as of this encounter (statuses as of 12/15/2021) [facility] History of Past illness Narrative* Problem Noted Date Resolved Date Routine general medical exam ination at a health care facility 02/15/2009 03/11/2012 Overview: 02/15/2009, from [employer] Routine gynecological examination 02/15/2009 03/11/2012 Overview: Dr. Rod, [facility] [place] Pain in joint, shoulder region 12/24/2007 0 02/15/2009 Cervicalgia 12/24/2007 02/15/2009 Lump or mass in breast 09/13/2006 3 Overview: May 13: repeat diagnostic in 6 months Bipolar I disorder, most rec ent episode (or current) unspecified 03/25/2007 Temporomandibular joint disorders, unspecified 02/15/2009 documented as of this encounter (statuses as of 01/17/2022) [facility] History of Past illness Narrative* Problem Noted Date Resolved Date Routine general medical exam ination at a health care facility 02/15/2009 03/11/2012 Overview: 02/15/2009, from [facility] Routine gynecological examination 02/15/2009 03/11/2012 Overview: Dr. Rod, [facility] [place] Pain in joint, shoulder region 12/24/2007 0 02/15/2009 Cervicalgia 12/24/2007 02/15/2009 Lump or mass in breast 09/13/2006 3 Overview: May 13: repeat diagnostic in 6 months Bipolar I disorder, most rec ent episode (or current) unspecified 03/25/2007 Temporomandibular joint disorders, unspecified 02/15/2009 documented as of this encounter (statuses as of 01/19/2022) [facility] History of Past illness Narrative* Problem Noted Date Resolved Date Routine general medical exam ination at a health care facility 02/15/2009 03/11/2012 Overview: 02/15/2009, from [facility] Routine gynecological examination 02/15/2009 03/11/2012 Overview: Dr. Rod, [facility], [facility] [place] Pain in joint, shoulder region 12/24/2007 0 02/15/2009 Cervicalgia 12/24/2007 02/15/2009 Lump or mass in breast 09/13/2006 3 Overview: May 13: repeat diagnostic in 6 months Bipolar I disorder, most rec ent episode (or current) unspecified 03/25/2007 Temporomandibular joint disorders, unspecified 02/15/2009 documented as of this encounter (statuses as of 02/17/2022) [facility] History of Past illness Narrative* Problem Noted Date Resolved Date Routine general medical exam ination at a health care facility 02/15/2009 03/11/2012 Overview: 02/15/2009, from [facility] Routine gynecological examination 02/15/2009 03/11/2012 Overview: Dr. Rod, [facility] [place] Pain in joint, shoulder region 12/24/2007 0 02/15/2009 Cervicalgia 12/24/2007 02/15/2009 Lump or mass in breast 09/13/2006 3 Overview: May 13: repeat diagnostic in 6 months Bipolar I disorder, most rec ent episode (or current) unspecified 03/25/2007 Temporomandibular joint disorders, unspecified 02/15/2009 documented as of this encounter (statuses as of 03/15/2022) [facility] History of Past illness Narrative* Problem Noted Date Resolved Date Routine general medical exam ination at a health care facility 02/15/2009 03/11/2012 Overview: 02/15/2009, from [employer] Routine gynecological examination 02/15/2009 03/11/2012 Overview: Dr[facility] Rod, [facility] [place] Pain in joint, shoulder region 12/24/2007 0 02/15/2009 Cervicalgia 12/24/2007 02/15/2009 Lump or mass in breast 09/13/2006 3 Overview: May 13: repeat diagnostic in 6 months Bipolar I disorder, most rec ent episode (or current) unspecified 03/25/2007 Temporomandibular joint disorders, unspecified 02/15/2009 documented as of this encounter (statuses as of 03/17/2022) [facility] History of Past illness Narrative* Problem Noted Date Resolved Date Routine general medical exam ination at a health care facility 02/15/2009 03/11/2012 Overview: 02/15/2009, from [facility] Routine gynecological examination 02/15/2009 03/11/2012 Overview: Dr. Rod, [facility] [place] Pain in joint, shoulder region 12/24/2007 0 02/15/2009 Cervicalgia 12/24/2007 02/15/2009 Lump or mass in breast 09/13/2006 3 Overview: May 13: repeat diagnostic in 6 months Bipolar I disorder, most rec ent episode (or current) unspecified 03/25/2007 Temporomandibular joint disorders, unspecified 02/15/2009 documented as of this encounter (statuses as of 04/11/2022) [facility] History of Past illness Narrative* Problem Noted Date Resolved Date Routine general medical exam ination at a health care facility 02/15/2009 03/11/2012 Overview: 02/15/2009, from [facility] Routine gynecological examination 02/15/2009 03/11/2012 Overview: Dr. Rod, [facility] [place] Pain in joint, shoulder region 12/24/2007 0 02/15/2009 Cervicalgia 12/24/2007 02/15/2009 Lump or mass in breast 09/13/2006 3 Overview: May 13: repeat diagnostic in 6 months Bipolar I disorder, most rec ent episode (or current) unspecified 03/25/2007 Temporomandibular joint disorders, unspecified 02/15/2009 documented as of this encounter (statuses as of 04/14/2022) [facility] History of Past illness Narrative* Problem Noted Date Resolved Date Routine general medical exam ination at a health care facility 02/15/2009 03/11/2012 Overview: 02/15/2009, from [facility] Routine gynecological examination 02/15/2009 03/11/2012 Overview: Dr. Rod, [facility] [place] Pain in joint, shoulder region 12/24/2007 0 02/15/2009 Cervicalgia 12/24/2007 02/15/2009 Lump or mass in breast 09/13/2006 3 Overview: May 13: repeat diagnostic in 6 months Bipolar I disorder, most rec ent episode (or current) unspecified 03/25/2007 Temporomandibular joint disorders, unspecified 02/15/2009 documented as of this encounter (statuses as of 04/14/2022) [facility] History of Past illness Narrative* Problem Noted Date Resolved Date Routine general medical exam ination at a health care facility 02/15/2009 03/11/2012 Overview: 02/15/2009, from [facility] Routine gynecological examination 02/15/2009 03/11/2012 Overview: Dr[facility] Rod, [facility] [place] Pain in joint, shoulder region 12/24/2007 0 02/15/2009 Cervicalgia 12/24/2007 02/15/2009 Lump or mass in breast 09/13/2006 3 Overview: May 13: repeat diagnostic in 6 months Bipolar I disorder, most rec ent episode (or current) unspecified 03/25/2007 Temporomandibular joint disorders, unspecified 02/15/2009 documented as of this encounter (statuses as of 05/18/2022) [facility] History of Past illness Narrative* Problem Noted Date Resolved Date Routine general medical exam ination at a health care facility 02/15/2009 03/11/2012 Overview: 02/15/2009, from [employer] Routine gynecological examination 02/15/2009 03/11/2012 Overview: Dr. Rod, [facility] [place] Pain in joint, shoulder region 12/24/2007 0 02/15/2009 Cervicalgia 12/24/2007 02/15/2009 Lump or mass in breast 09/13/2006 3 Overview: May 13: repeat diagnostic in 6 months Bipolar I disorder, most rec ent episode (or current) unspecified 03/25/2007 Temporomandibular joint disorders, unspecified 02/15/2009 documented as of this encounter (statuses as of 05/26/2022) [facility]01-[facility]2010 History of Past illness Narrative* Problem Noted Date Resolved Date Routine general medical exam ination at a health care facility 02/15/2009 03/11/2012 Overview: 02/15/2009, from [facility] Routine gynecological examination 02/15/2009 03/11/2012 Overview: Dr. Rod, [facility], [facility] [place] Pain in joint, shoulder region 12/24/2007 0 02/15/2009 Cervicalgia 12/24/2007 02/15/2009 Lump or mass in breast 09/13/2006 3 Overview: May 13: repeat diagnostic in 6 months Bipolar I disorder, most rec ent episode (or current) unspecified 03/25/2007 Temporomandibular joint disorders, unspecified 02/15/2009 documented as of this encounter (statuses as of 06/09/2022) [facility]2010 History of Past illness Narrative* Problem Noted Date Resolved Date Routine general medical exam ination at a health care facility 02/15/2009 03/11/2012 Overview: 02/15/2009, from [facility] Routine gynecological examination 02/15/2009 03/11/2012 Overview: Dr. Rod, [facility], [facility] [place] Pain in joint, shoulder region 12/24/2007 0 02/15/2009 Cervicalgia 12/24/2007 02/15/2009 Lump or mass in breast 09/13/2006 3 Overview: May 13: repeat diagnostic in 6 months Bipolar I disorder, most rec ent episode (or current) unspecified 03/25/2007 Temporomandibular joint disorders, unspecified 02/15/2009 documented as of this encounter (statuses as of 06/16/2022) [facility] History of Past illness Narrative* Problem Noted Date Diagnosed Date Resolved Date Routine general medical exam ination at a health care facility 02/15/2009 03/11/2012 Overview: 02/15/2009, from [facility] Routine gynecological examination 02/15/2009 03/11/2012 Overview: Dr. Rod, [facility], [facility] [place] Pain in joint, shoulder region 12/24/2007 02/15/2009 Cervicalgia 12/24/2007 02/15/2009 Lump or mass in breast 09/13/200603/11 Overview: May 13: repeat diagnostic in 6 months Bipolar I disorder, most rec ent episode (or current) unspecified 03/25/2007 Temporomandibular joint diso rders, unspecified 02/15/2009 documented as of this encounter (statuses as of 08/17/2022) [facility] History of Past illness Narrative* Problem Noted Date Diagnosed Date Resolved Date Routine general medical exam ination at a health care facility 02/15/2009 03/11/2012 Overview: 02/15/2009, from [facility] Routine gynecological examination 02/15/2009 03/11/2012 Overview: Dr. Rod, [facility], [facility] [place] Pain in joint, shoulder region 12/24/2007 02/15/2009 Cervicalgia 12/24/2007 02/15/2009 Lump or mass in breast 09/13/200603/11 Overview: May 13: repeat diagnostic in 6 months Bipolar I disorder, most rec ent episode (or current) unspecified 03/25/2007 Temporomandibular joint diso rders, unspecified 02/15/2009 documented as of this encounter (statuses as of 09/11/2022) [facility] History of Past illness Narrative* Problem Noted Date Diagnosed Date Resolved Date Routine general medical exam ination at a health care facility 02/15/2009 03/11/2012 Overview: 02/15/2009, from [facility] Routine gynecological examination 02/15/2009 03/11/2012 Overview: Dr. Rod, [facility], [facility] [place] Pain in joint, shoulder region 12/24/2007 02/15/2009 Cervicalgia 12/24/2007 02/15/2009 Lump or mass in breast 09/13/200603/11 Overview: May 13: repeat diagnostic in 6 months Bipolar I disorder, most rec ent episode (or current) unspecified 03/25/2007 Temporomandibular joint diso rders, unspecified 02/15/2009 documented as of this encounter (statuses as of 09/14/2022) [facility] History of Past illness Narrative* Problem Noted Date Diagnosed Date Resolved Date Routine general medical exam ination at a health care facility 02/15/2009 03/11/2012 Overview: 02/15/2009, from [facility] Routine gynecological examination 02/15/2009 03/11/2012 Overview: Dr. Rod, [facility], [facility] [place] Pain in joint, shoulder region 12/24/2007 02/15/2009 Cervicalgia 12/24/2007 02/15/2009 Lump or mass in breast 09/13/200603/11 Overview: May 13: repeat diagnostic in 6 months Bipolar I disorder, most rec ent episode (or current) unspecified 03/25/2007 Temporomandibular joint diso rders, unspecified 02/15/2009 documented as of this encounter (statuses as of 09/14/2022) [facility] History of Past illness Narrative* Problem Noted Date Diagnosed Date Resolved Date Routine general medical exam ination at a health care facility 02/15/2009 03/11/2012 Overview: 02/15/2009, from [facility] Routine gynecological examination 02/15/2009 03/11/2012 Overview: Dr. Rod, [facility], [facility] [place] Pain in joint, shoulder region 12/24/2007 02/15/2009 Cervicalgia 12/24/2007 02/15/2009 Lump or mass in breast 09/13/200603/11 Overview: May 13: repeat diagnostic in 6 months Bipolar I disorder, most rec ent episode (or current) unspecified 03/25/2007 Temporomandibular joint diso rders, unspecified 02/15/2009 documented as of this encounter (statuses as of 10/04/2022) [facility] History of Past illness Narrative* Problem Noted Date Diagnosed Date Resolved Date Routine general medical exam ination at a health care facility 02/15/2009 03/11/2012 Overview: 02/15/2009, from [facility] Routine gynecological examination 02/15/2009 03/11/2012 Overview: Dr. Rod, [facility], [facility] [place] Pain in joint, shoulder region 12/24/2007 02/15/2009 Cervicalgia 12/24/2007 02/15/2009 Lump or mass in breast 09/13/200603/11 Overview: May 13: repeat diagnostic in 6 months Bipolar I disorder, most rec ent episode (or current) unspecified 03/25/2007 Temporomandibular joint diso rders, unspecified 02/15/2009 documented as of this encounter (statuses as of 10/12/2022) [facility] History of Past illness Narrative* Problem Noted Date Diagnosed Date Resolved Date Routine general medical exam ination at a health care facility 02/15/2009 03/11/2012 Overview: 02/15/2009, from [facility] Routine gynecological examination 02/15/2009 03/11/2012 Overview: Dr. Rod, [facility] [place] Pain in joint, shoulder region 12/24/2007 02/15/2009 Cervicalgia 12/24/2007 02/15/2009 Lump or mass in breast 09/13/200603/11 Overview: May 13: repeat diagnostic in 6 months Bipolar I disorder, most rec ent episode (or current) unspecified 03/25/2007 Temporomandibular joint diso rders, unspecified 02/15/2009 documented as of this encounter (statuses as of 10/12/2022) [facility] History of Past illness Narrative* Problem Noted Date Diagnosed Date Resolved Date Routine general medical exam ination at a health care facility 02/15/2009 03/11/2012 Overview: 02/15/2009, from [facility] Routine gynecological examination 02/15/2009 03/11/2012 Overview: Dr. Rod, [facility], [facility] [place] Pain in joint, shoulder region 12/24/2007 02/15/2009 Cervicalgia 12/24/2007 02/15/2009 Lump or mass in breast 09/13/200603/11 Overview: May 13: repeat diagnostic in 6 months Bipolar I disorder, most rec ent episode (or current) unspecified 03/25/2007 Temporomandibular joint diso rders, unspecified 02/15/2009 documented as of this encounter (statuses as of 10/27/2022) [facility] History of Past illness Narrative* Problem Noted Date Diagnosed Date Resolved Date Routine general medical exam ination at a health care facility 02/15/2009 03/11/2012 Overview: 02/15/2009, from [facility] Routine gynecological examination 02/15/2009 03/11/2012 Overview: Dr. Rod, [facility], [facility] [place] Pain in joint, shoulder region 12/24/2007 02/15/2009 Cervicalgia 12/24/2007 02/15/2009 Lump or mass in breast 09/13/200603/11 Overview: May 13: repeat diagnostic in 6 months Bipolar I disorder, most rec ent episode (or current) unspecified 03/25/2007 Temporomandibular joint diso rders, unspecified 02/15/2009 documented as of this encounter (statuses as of 11/10/2022) [facility] History of Past illness Narrative* Problem Noted Date Diagnosed Date Resolved Date Routine general medical exam ination at a health care facility 02/15/2009 03/11/2012 Overview: 02/15/2009, from [facility] Routine gynecological examination 02/15/2009 03/11/2012 Overview: Dr. Rod, [facility], [facility] [place] Pain in joint, shoulder region 12/24/2007 02/15/2009 Cervicalgia 12/24/2007 02/15/2009 Lump or mass in breast 09/13/200603/11 Overview: May 13: repeat diagnostic in 6 months Bipolar I disorder, most rec ent episode (or current) unspecified 03/25/2007 Temporomandibular joint diso rders, unspecified 02/15/2009 documented as of this encounter (statuses as of 11/10/2022) [facility] History of Past illness Narrative* Problem Noted Date Diagnosed Date Resolved Date Routine general medical exam ination at a health care facility 02/15/2009 03/11/2012 Overview: 02/15/2009, from [facility] Routine gynecological examination 02/15/2009 03/11/2012 Overview: Dr. Rod, [facility] [place] Pain in joint, shoulder region 12/24/2007 02/15/2009 Cervicalgia 12/24/2007 02/15/2009 Lump or mass in breast 09/13/200603/11 Overview: May 13: repeat diagnostic in 6 months Bipolar I disorder, most rec ent episode (or current) unspecified 03/25/2007 Temporomandibular joint diso rders, unspecified 02/15/2009 documented as of this encounter (statuses as of 11/28/2022) [facility] History of Past illness Narrative* Problem Noted Date Diagnosed Date Resolved Date Routine general medical exam ination at a health care facility 02/15/2009 03/11/2012 Overview: 02/15/2009, from [facility] Routine gynecological examination 02/15/2009 03/11/2012 Overview: Dr. Rod, [facility] [place] Pain in joint, shoulder region 12/24/2007 02/15/2009 Cervicalgia 12/24/2007 02/15/2009 Lump or mass in breast 09/13/200603/11 Overview: May 13: repeat diagnostic in 6 months Bipolar I disorder, most rec ent episode (or current) unspecified 03/25/2007 Temporomandibular joint diso rders, unspecified 02/15/2009 documented as of this encounter (statuses as of 11/30/2022) [facility] History of Past illness Narrative* Problem Noted Date Diagnosed Date Resolved Date Routine general medical exam ination at a health care facility 02/15/2009 03/11/2012 Overview: 02/15/2009, from [facility] Routine gynecological examination 02/15/2009 03/11/2012 Overview: Dr. Rod, [facility] [place] Pain in joint, shoulder region 12/24/2007 02/15/2009 Cervicalgia 12/24/2007 02/15/2009 Lump or mass in breast 09/13/200603/11 Overview: May 13: repeat diagnostic in 6 months Bipolar I disorder, most rec ent episode (or current) unspecified 03/25/2007 Temporomandibular joint diso rders, unspecified 02/15/2009 documented as of this encounter (statuses as of 12/27/2022) [facility] History of Past illness Narrative* Problem Noted Date Diagnosed Date Resolved Date Routine general medical exam ination at a health care facility 02/15/2009 03/11/2012 Overview: 02/15/2009, from [facility] Routine gynecological examination 02/15/2009 03/11/2012 Overview: Dr. Rod, [facility], [facility] [place] Pain in joint, shoulder region 12/24/2007 02/15/2009 Cervicalgia 12/24/2007 02/15/2009 Lump or mass in breast 09/13/200603/11 Overview: May 13: repeat diagnostic in 6 months Bipolar I disorder, most rec ent episode (or current) unspecified 03/25/2007 Temporomandibular joint diso rders, unspecified 02/15/2009 documented as of this encounter (statuses as of 01/04/2023) [facility] History of Past illness Narrative* Problem Noted Date Diagnosed Date Resolved Date Routine general medical exam ination at a health care facility 02/15/2009 03/11/2012 Overview: 02/15/2009, from [facility] Routine gynecological examination 02/15/2009 03/11/2012 Overview: Dr. Rod, [facility], [facility] [place] Pain in joint, shoulder region 12/24/2007 02/15/2009 Cervicalgia 12/24/2007 02/15/2009 Lump or mass in breast 09/13/200603/11 Overview: May 13: repeat diagnostic in 6 months Bipolar I disorder, most rec ent episode (or current) unspecified 03/25/2007 Temporomandibular joint diso rders, unspecified 02/15/2009 documented as of this encounter (statuses as of 01/04/2023) [facility] History of Past illness Narrative* Problem Noted Date Diagnosed Date Resolved Date Routine general medical exam ination at a health care facility 02/15/2009 03/11/2012 Overview: 02/15/2009, from [facility] Routine gynecological examination 02/15/2009 03/11/2012 Overview: Dr. Rod, [facility], [facility] [place] Pain in joint, shoulder region 12/24/2007 02/15/2009 Cervicalgia 12/24/2007 02/15/2009 Lump or mass in breast 09/13/200603/11 Overview: May 13: repeat diagnostic in 6 months Bipolar I disorder, most rec ent episode (or current) unspecified 03/25/2007 Temporomandibular joint diso rders, unspecified 02/15/2009 documented as of this encounter (statuses as of 03/15/2023) [facility] Diagnosis Encounter for screening mammogram for breast cancer [facility] Diagnosis Chronic pain syndrome- Primary Cervical back pain with evidence of disc disease Other and unspecified disc disorder of cervical region Fibromyalgia Mylagia and myositis, unspecified 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 Migraine variant Variants of migraine, not elsewhere classified, without mention of intractable migraine without mention of status migrainosus Rotator cuff syndrome, unspecified laterality Osteoarthritis of both shoulders, unspecified osteoarthritis type [facility]* Diagnosis 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 Degeneration of intervertebral disc of cervical region Osteoarthritis of both shoulders, unspecified osteoarthritis type Fibromyalgia Mylagia and myositis, unspecified Chronic pain syndrome Migraine variant Variants of migraine, not elsewhere classified, without mention of intractable migraine without mention of status migrainosus [facility] Chronic pain syndrome- Primary 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 Degeneration of intervertebral disc of cervical region Fibromyalgia Mylagia and myositis, unspecified [facility] Neck pain, chronic- Primary Cervicalgia Acute pain of right knee [facility] Diagnosis 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 [facility] Diagnosis Localized osteoarthritis of both shoulder regions- Primary Chronic pain syndrome Chronic pain syndrome Localized osteoarthritis of both shoulder regions [facility] Diagnosis Bilateral shoulder pain, unspecified chronicity Chronic pain syndrome Localized osteoarthritis of both shoulder regions [facility] Diagnosis Adverse effect of treatment, initial encounter- Primary Neck pain, chronic Cervicalgia Pseudarthrosis after fusion or arthrodesis Arthrodesis status Chronic pain syndrome Localized osteoarthritis of both shoulder regions [facility] Chronic pain syndrome- Primary 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 Degeneration of intervertebral disc of cervical region Fibromyalgia Mylagia and myositis, unspecified Localized osteoarthritis of both shoulder regions [facility] Diagnosis Chronic pain syndrome Chronic pain syndrome Localized osteoarthritis of both shoulder regions [facility] Diagnosis Other chronic pain- Primary 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 Degeneration of intervertebral disc of cervical region Fibromyalgia Mylagia and myositis, unspecified Localized osteoarthritis of both shoulder regions Chronic pain syndrome Migraine variant Variants of migraine, not elsewhere classified, without mention of intractable migraine without mention of status migrainosus Chronic pain syndrome Localized osteoarthritis of both shoulder regions [facility] Diagnosis Cervical back pain with evidence of disc disease- Primary Other and unspecified disc disorder of cervical region [facility] Other chronic pain- Primary Cervical back pain with evidence of disc disease Other and unspecified disc disorder of cervical region 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 Localized osteoarthritis of both shoulder regions Migraine variant Variants of migraine, not elsewhere classified, without mention of intractable migraine without mention of status migrainosus Chronic pain syndrome Cervical disc disorder with radiculopathy Brachial neuritis or radiculitis nos [facility] Diagnosis 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 Other chronic pain Cervical back pain with evidence of disc disease Other and unspecified disc disorder of cervical region Osteoarthritis of both shoulders, unspecified osteoarthritis type Degeneration of intervertebral disc of cervical region Cervical disc disorder with radiculopathy Brachial neuritis or radiculitis nos Migraine variant Variants of migraine, not elsewhere classified, without mention of intractable migraine without mention of status migrainosus Fibromyalgia Mylagia and myositis, unspecified Rotator cuff syndrome, unspecified laterality Chronic pain syndrome [facility] Other chronic pain- Primary 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 Cervical back pain with evidence of disc disease Other and unspecified disc disorder of cervical region Localized osteoarthritis of both shoulder regions Fibromyalgia Mylagia and myositis, unspecified Chronic pain syndrome [facility] Diagnosis Other chronic pain- Primary Opioid dependence, continuous (HCC) Opioid type dependence, continuous [facility]DC (current) use of opiate analgesic Cervical back pain with evidence of disc disease Other and unspecified disc disorder of cervical region Localized osteoarthritis of both shoulder regions Fibromyalgia Mylagia and myositis, unspecified Chronic pain syndrome [facility] Diagnosis Other chronic pain- Primary FDC (current) use of opiate analgesic Cervical back pain with evidence of disc disease Other and unspecified disc disorder of cervical region Localized osteoarthritis of both shoulder regions Chronic pain syndrome Migraine variant Variants of migraine, not elsewhere classified, without mention of intractable migraine without mention of status migrainosus [facility] Diagnosis Chronic pain syndrome [facility] Diagnosis Chronic pain syndrome [facility] Diagnosis Chronic pain syndrome [facility] Diagnosis Other chronic pain- Primary [facility]DC (current) use of opiate analgesic Cervical back pain with evidence of disc disease Other and unspecified disc disorder of cervical region Localized osteoarthritis of both shoulder regions Fibromyalgia Mylagia and myositis, unspecified Migraine variant Variants of migraine, not elsewhere classified, without mention of intractable migraine without mention of status migrainosus Chronic pain syndrome [facility] Diagnosis [facility]DC (current) use of opiate analgesic- Primary [facility] Diagnosis Other chronic pain- Primary [facility]DC (current) use of opiate analgesic Cervical back pain with evidence of disc disease Other and unspecified disc disorder of cervical region Localized osteoarthritis of both shoulder regions Fibromyalgia Mylagia and myositis, unspecified Migraine variant Variants of migraine, not elsewhere classified, without mention of intractable migraine without mention of status migrainosus Chronic pain syndrome documented in this encounter [facility] note* Diagnosis Malignant hypertension- Primary Essential hypertension, malignant Bilateral shoulder pain, unspecified chronicity documented in this encounter [facility] note* Diagnosis Chronic pain syndrome Other chronic pain documented in this encounter [facility] note* Diagnosis Chronic pain syndrome documented in this encounter [facility] note* Diagnosis 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 documented in this encounter [facility] for referral (narrative)* Diagnostic Procedure Only (Routine) - Pending Review Specialty Diagnoses / Procedures Referred By Lawrence her Referred To Contact BR IMAGING Diagnoses Encounter for screening mammogram for breast cancer Procedures [facility] SCREENING SCREENING MAMMOGRAPHY BI 2-VIEW BREAST INC Devorah Green MD [address] [place] [address] [facility] [id number] [facility] [place] [address] Referral ID Status Reason Start Date Expiration Date Visits Requested Visits Authorized [id number] Pending Review Auto-Generat ed Referral 08/03/2021 09/02/2022 1 1 [facility] for referral (narrative)* Diagnostic Procedure Only (Routine) - Closed Specialty Diagnoses / Procedures Referred By Lawrence her Referred To Contact XR IMAGING Diagnoses Acute pain of right knee Procedures XR KNEE GENERAL 4V AP BOTH/PA BOTH/LAT/MERC RIGHT RADIOLOGIC EXAM KNEE COMPLETE 4/MORE VIEWS Juany Roach, [employer] [address] [place] [address] Xr Imaging Referral ID Status Reason Start Date Expiration Date V isits Requested Visits Authorized [id number] Closed Auto-Generate d Referral 10/28/2021 11/27/2022 1 1 * Consult, Test, Treat (Routine) - Pending Review Specialty Diagnoses / Procedures Referred By Contac t Referred To Contact [facility] Diagnoses Neck pain, chronic Procedures CONSULT TO [facility] OFFICE/OUTPATIENT NEW HIGH MDM 60-74 MINUTES Juany Roach APRN.[employer] [address] [place] [address] Referral ID Status Reason Start Date Expiration Date Visits Requested Visits Authorized [id number] Pending Review PCP Requested Referral 10/28/2021 10/28/2022 1 1 * Diagnostic Procedure Only (Routine) - Closed Specialty Diagnoses / Procedures Referred By Contac t Referred To Contact XR IMAGING Diagnoses Neck pain, chronic Procedures XR CERV OTHER 4V AP/LAT/OBL RADEX SPINE CERVICAL 4 OR 5 VIEWS Juany Roach APRN.[employer] [address] [place] [address] Xr Imaging Referral ID Status Reason Start Date Expiration Date V isits Requested Visits Authorized [id number] Closed Auto-Generate d Referral 10/28/2021 11/27/2022 1 1 [facility] for referral (narrative)* Diagnostic Procedure Only (Routine) - Pending Review Specialty Diagnoses / Procedures Referred By Contac t Referred To Contact XR IMAGING Diagnoses Neck pain, chronic Adverse effect of treatment, initial encounter Pseudarthrosis after fusion or arthrodesis Procedures XR CERVICAL 2V FLEX/EXT RADEX SPINE CERVICAL 2 OR 3 VIEWS Robb Cleaning PA-C [address] [place] [id number] Xr Imaging Referral ID Status Reason Start Date Expiration Date Visits Requested Visits Authorized [id number] Pending Review Auto-Generat ed Referral 12/18/2022 1 1 * - Pending Review Specialty Diagnoses / Procedures Referred By Contac t Referred To Contact Diagnoses Neck pain, chronic Adverse effect of treatment, initial encounter Pseudarthrosis after fusion or arthrodesis Procedures CONSULT TO PHYSICAL THERAPY Robb Cleaning PA-C [address] [place] [address] Referral ID Status Reason Start Date Expiration Date V isits Requested Visits Authorized [id number] Pending Review 11/18/2021 02/16/2022 1 1 * MRI/CT (Routine) - Pending Review Specialty Diagnoses / Procedures Referred By Contac t Referred To Contact MR IMAGING Diagnoses Neck pain, chronic Adverse effect of treatment, initial encounter Pseudarthrosis after fusion or arthrodesis Procedures MRI CERVICAL SPINE WO IVCON MRI SPINAL CANAL CERVICAL W/O CONTRAST MATRL Robb Cleaning PA-C [address] [place] [address] Mr Imaging Referral ID Status Reason Start Date Expiration Date Visits Requested Visits Authorized [id number] Pending Review Auto-Generat ed Referral 2 12/18/2022 1 1 * MRI/CT (Routine) - Pending Review Specialty Diagnoses / Procedures Referred By Contac t Referred To Contact CT IMAGING Diagnoses Neck pain, chronic Adverse effect of treatment, initial encounter Pseudarthrosis after fusion or arthrodesis Procedures CT CERVICAL SPINE WO IVCON CT CERVICAL SPINE W/O CONTRAST MATERIAL Robb Cleaning PA-C [address] [place] [address] Ct Imaging Referral ID Status Reason Start Date Expiration Date Visits Requested Visits Authorized [id number] Pending Review Auto-Generat ed Referral 2 12/18/2022 1 1 [facility] Advance Directives No Advanced Directives Records FoundDocuments on File Type Date Recorded Patient Fitness Studies Teacher Expl anation Advance Directive(s) Documents on File Type Date Recorded Patient Fitness Studies Teacher Expl anation Advance Directive(s) Summary Purpose Family History No Family History Records FoundNo Family History Records FoundNo Family History Records Found Additional Source Comments Source Comments (unrecognize d section and content) In the event this informatio n is protected by the Federal Confidentiality of Alcohol and Drug Abuse Patient Records regulations: The Federal rules restrict any use of the information to criminally investigate or prosecute any alcohol or drug abuse patient.[facility] the event this information is protected by the Federal Confidentiality of Alcohol and Drug Abuse Patient Records regulations: The Federal rules restrict any use of the information to criminally investigate or prosecute any alcohol or drug abuse patient.[facility] the event this information is protected by the Federal Confidentiality of Alcohol and Drug Abuse Patient Records regulations: The Federal rules restrict any use of the information to criminally investigate or prosecute any alcohol or drug abuse patient.[facility] the event this information is protected by the Federal Confidentiality of Alcohol and Drug Abuse Patient Records regulations: The Federal rules restrict any use of the information to criminally investigate or prosecute any alcohol or drug abuse patient.[facility]In the event this information is protected by the Federal Confidentiality of Alcohol and Drug Abuse Patient Records regulations: The Federal rules restrict any use of the information to criminally investigate or prosecute any alcohol or drug abuse patient.[facility]In the event this information is protected by the Federal Confidentiality of Alcohol and Drug Abuse Patient Records regulations: The Federal rules restrict any use of the information to criminally investigate or prosecute any alcohol or drug abuse patient.[facility]In the event this information is protected by the Federal Confidentiality of Alcohol and Drug Abuse Patient Records regulations: The Federal rules restrict any use of the information to criminally investigate or prosecute any alcohol or drug abuse patient.[facility]In the event this information is protected by the Federal Confidentiality of Alcohol and Drug Abuse Patient Records regulations: The Federal rules restrict any use of the information to criminally investigate or prosecute any alcohol or drug abuse patient.[facility]In the event this information is protected by the Federal Confidentiality of Alcohol and Drug Abuse Patient Records regulations: The Federal rules restrict any use of the information to criminally investigate or prosecute any alcohol or drug abuse patient.[facility]In the event this information is protected by the Federal Confidentiality of Alcohol and Drug Abuse Patient Records regulations: The Federal rules restrict any use of the information to criminally investigate or prosecute any alcohol or drug abuse patient.[facility]In the event this information is protected by the Federal Confidentiality of Alcohol and Drug Abuse Patient Records regulations: The Federal rules restrict any use of the information to criminally investigate or prosecute any alcohol or drug abuse patient.[facility]In the event this information is protected by the Federal Confidentiality of Alcohol and Drug Abuse Patient Records regulations: The Federal rules restrict any use of the information to criminally investigate or prosecute any alcohol or drug abuse patient.[facility]In the event this information is protected by the Federal Confidentiality of Alcohol and Drug Abuse Patient Records regulations: The Federal rules restrict any use of the information to criminally investigate or prosecute any alcohol or drug abuse patient.[facility]In the event this information is protected by the Federal Confidentiality of Alcohol and Drug Abuse Patient Records regulations: The Federal rules restrict any use of the information to criminally investigate or prosecute any alcohol or drug abuse patient.[facility] HospitalIn the event this information is protected by the Federal Confidentiality of Alcohol and Drug Abuse Patient Records regulations: The Federal rules restrict any use of the information to criminally investigate or prosecute any alcohol or drug abuse patient.[facility]In the event this information is protected by the Federal Confidentiality of Alcohol and Drug Abuse Patient Records regulations: The Federal rules restrict any use of the information to criminally investigate or prosecute any alcohol or drug abuse patient.[facility]In the event this information is protected by the Federal Confidentiality of Alcohol and Drug Abuse Patient Records regulations: The Federal rules restrict any use of the information to criminally investigate or prosecute any alcohol or drug abuse patient.[facility]In the event this information is protected by the Federal Confidentiality of Alcohol and Drug Abuse Patient Records regulations: The Federal rules restrict any use of the information to criminally investigate or prosecute any alcohol or drug abuse patient.[facility]In the event this information is protected by the Federal Confidentiality of Alcohol and Drug Abuse Patient Records regulations: The Federal rules restrict any use of the information to criminally investigate or prosecute any alcohol or drug abuse patient.[facility] HospitalIn the event this information is protected by the Federal Confidentiality of Alcohol and Drug Abuse Patient Records regulations: The Federal rules restrict any use of the information to criminally investigate or prosecute any alcohol or drug abuse patient.[facility] HospitalIn the event this information is protected by the Federal Confidentiality of Alcohol and Drug Abuse Patient Records regulations: The Federal rules restrict any use of the information to criminally investigate or prosecute any alcohol or drug abuse patient.[facility] HospitalIn the event this information is protected by the Federal Confidentiality of Alcohol and Drug Abuse Patient Records regulations: The Federal rules restrict any use of the information to criminally investigate or prosecute any alcohol or drug abuse patient.[facility] HospitalIn the event this information is protected by the Federal Confidentiality of Alcohol and Drug Abuse Patient Records regulations: The Federal rules restrict any use of the information to criminally investigate or prosecute any alcohol or drug abuse patient.[facility]In the event this information is protected by the Federal Confidentiality of Alcohol and Drug Abuse Patient Records regulations: The Federal rules restrict any use of the information to criminally investigate or prosecute any alcohol or drug abuse patient.[facility]In the event this information is protected by the Federal Confidentiality of Alcohol and Drug Abuse Patient Records regulations: The Federal rules restrict any use of the information to criminally investigate or prosecute any alcohol or drug abuse patient.[facility]In the event this information is protected by the Federal Confidentiality of Alcohol and Drug Abuse Patient Records regulations: The Federal rules restrict any use of the information to criminally investigate or prosecute any alcohol or drug abuse patient.[facility] HospitalIn the event this information is protected by the Federal Confidentiality of Alcohol and Drug Abuse Patient Records regulations: The Federal rules restrict any use of the information to criminally investigate or prosecute any alcohol or drug abuse patient.[facility]In the event this information is protected by the Federal Confidentiality of Alcohol and Drug Abuse Patient Records regulations: The Federal rules restrict any use of the information to criminally investigate or prosecute any alcohol or drug abuse patient.[facility]In the event this information is protected by the Federal Confidentiality of Alcohol and Drug Abuse Patient Records regulations: The Federal rules restrict any use of the information to criminally investigate or prosecute any alcohol or drug abuse patient.[facility]In the event this information is protected by the Federal Confidentiality of Alcohol and Drug Abuse Patient Records regulations: The Federal rules restrict any use of the information to criminally investigate or prosecute any alcohol or drug abuse patient.[facility]In the event this information is protected by the Federal Confidentiality of Alcohol and Drug Abuse Patient Records regulations: The Federal rules restrict any use of the information to criminally investigate or prosecute any alcohol or drug abuse patient.[facility]In the event this information is protected by the Federal Confidentiality of Alcohol and Drug Abuse Patient Records regulations: The Federal rules restrict any use of the information to criminally investigate or prosecute any alcohol or drug abuse patient.[facility]In the event this information is protected by the Federal Confidentiality of Alcohol and Drug Abuse Patient Records regulations: The Federal rules restrict any use of the information to criminally investigate or prosecute any alcohol or drug abuse patient.[facility]In the event this information is protected by the Federal Confidentiality of Alcohol and Drug Abuse Patient Records regulations: The Federal rules restrict any use of the information to criminally investigate or prosecute any alcohol or drug abuse patient.[facility]In the event this information is protected by the Federal Confidentiality of Alcohol and Drug Abuse Patient Records regulations: The Federal rules restrict any use of the information to criminally investigate or prosecute any alcohol or drug abuse patient.[facility]In the event this information is protected by the Federal Confidentiality of Alcohol and Drug Abuse Patient Records regulations: The Federal rules restrict any use of the information to criminally investigate or prosecute any alcohol or drug abuse patient.[facility]In the event this information is protected by the Federal Confidentiality of Alcohol and Drug Abuse Patient Records regulations: The Federal rules restrict any use of the information to criminally investigate or prosecute any alcohol or drug abuse patient.[facility]In the event this information is protected by the Federal Confidentiality of Alcohol and Drug Abuse Patient Records regulations: The Federal rules restrict any use of the information to criminally investigate or prosecute any alcohol or drug abuse patient.[facility]In the event this information is protected by the Federal Confidentiality of Alcohol and Drug Abuse Patient Records regulations: The Federal rules restrict any use of the information to criminally investigate or prosecute any alcohol or drug abuse patient.[facility] HospitalIn the event this information is protected by the Federal Confidentiality of Alcohol and Drug Abuse Patient Records regulations: The Federal rules restrict any use of the information to criminally investigate or prosecute any alcohol or drug abuse patient.[facility]In the event this information is protected by the Federal Confidentiality of Alcohol and Drug Abuse Patient Records regulations: The Federal rules restrict any use of the information to criminally investigate or prosecute any alcohol or drug abuse patient.[facility] HospitalIn the event this information is protected by the Federal Confidentiality of Alcohol and Drug Abuse Patient Records regulations: The Federal rules restrict any use of the information to criminally investigate or prosecute any alcohol or drug abuse patient.[facility] HospitalIn the event this information is protected by the Federal Confidentiality of Alcohol and Drug Abuse Patient Records regulations: The Federal rules restrict any use of the information to criminally investigate or prosecute any alcohol or drug abuse patient.[facility] HospitalIn the event this information is protected by the Federal Confidentiality of Alcohol and Drug Abuse Patient Records regulations: The Federal rules restrict any use of the information to criminally investigate or prosecute any alcohol or drug abuse patient.[facility] Care Teams (unrecognized sec tion and content) Bus Operator Relationship Specialty Start Date End Date Devorah Stringer MD [address] [place] [address] PCP - General Family Practice 09/11/11 Bus Operator Relationship Specialty Start Date End Date Devorah Stringer MD [address] [place] [address] PCP - General Family Practice 09/11/11 Bus Operator Relationship Specialty Start Date End Date Devorah Stringer MD [address] [place] [address] PCP - General Family Practice 09/11/11 Bus Operator Relationship Specialty Start Date End Date Devorah Stringer MD [address] [place] [address] PCP - General Family Practice 09/11/11 Bus Operator Relationship Specialty Start Date End Date Devorah Stringer MD [address] [place] [address] PCP - General Family Practice 09/11/11 Bus Operator Relationship Specialty Start Date End Date Devorah Stringer MD [address] [facility] [place] [place] [address] PCP - General Family Practice 09/11/11 Bus Operator Relationship Specialty Start Date End Date Devorah Stringer MD [address] [facility] [place] [place] [address] PCP - General Family Medicine 09/11/11 Bus Operator Relationship Specialty Start Date End Date Devorah Stringer MD [address] [facility] [place] [place] [address] PCP - General Family Medicine 09/11/11 Bus Operator Relationship Specialty Start Date End Date Devorah Stringer MD [address] [facility] [place] [place] [address] PCP - General Family Medicine 09/11/11 Bus Operator Relationship Specialty Start Date End Date Devorah Stringer MD [address] [facility] [place] [place] [address] PCP - General Family Medicine 09/11/11 Bus Operator Relationship Specialty Start Date End Date Devorah Stringer MD [address] [facility] [place] [place] [address] PCP - General Family Medicine 09/11/11 Bus Operator Relationship Specialty Start Date End Date Devorah Stringer MD [address] [facility] [place] [place] [address] PCP - General Family Medicine 09/11/11 Bus Operator Relationship Specialty Start Date End Date Devorah Stringer MD [address] [facility] [place] [place] [address] PCP - General Family Medicine 09/11/11 Bus Operator Relationship Specialty Start Date End Date Devorah Stringer MD [address] [facility] [place] [place] [address] PCP - General Family Medicine 09/11/11 Bus Operator Relationship Specialty Start Date End Date Devorah Stringer MD [address] [place] [address] PCP - General Family Medicine 09/11/11 Bus Operator Relationship Specialty Start Date End Date Devorah Stringer MD [address] [place] [address] PCP - General Family Medicine 09/11/11 Bus Operator Relationship Specialty Start Date End Date Devorah Stringer MD [address] [place] [address] PCP - General Family Medicine 09/11/11 Bus Operator Relationship Specialty Start Date End Date Devorah Stringer MD [address] [place] [address] PCP - General Family Medicine 09/11/11 Bus Operator Relationship Specialty Start Date End Date Devorah Stringer MD [address] [place] [address] PCP - General Family Medicine 09/11/11 Bus Operator Relationship Specialty Start Date End Date Devorah Stringer MD [address] [place] [address] PCP - General Family Medicine 09/11/11 Bus Operator Relationship Specialty Start Date End Date Devorah Stringer MD [address] [place] [address] PCP - General Family Medicine 09/11/11 Bus Operator Relationship Specialty Start Date End Date Devorah Stringer MD [address] [place] [address] PCP - General Family Medicine 09/11/11 Bus Operator Relationship Specialty Start Date End Date Devorah Stringer MD [address] [place] [address] PCP - General Family Medicine 09/11/11 Bus Operator Relationship Specialty Start Date End Date Devorah Stringer MD [address] [place] [address] PCP - General Family Medicine 09/11/11 Bus Operator Relationship Specialty Start Date End Date Devorah Stringer MD [address] [place] [address] PCP - General Family Medicine 09/11/11 Bus Operator Relationship Specialty Start Date End Date Devorah Stringer MD [address] [place] [address] PCP - General Family Medicine 09/11/11 Bus Operator Relationship Specialty Start Date End Date Devorah Stringer MD [address] [place] [address] PCP - General Family Medicine 09/11/11 Bus Operator Relationship Specialty Start Date End Date Devorah Stringer MD [address] [place] [address] PCP - General Family Medicine 09/11/11 INFORMATION SOURCE (unrecogn ized section and content) DATE CREATED AUTHOR AUTHOR'S ORGANIZ ATION 12/11/2022 [facility] DATE CREATED AUTHOR AUTHOR'S ORGANIZ ATION 03/16/2023 [facility] nter Reason for Visit (unrecogniz ed section and content) Reason Comments Acute Visit neck pain Reason Comments Results X-ray Reason Comments Refill Request Reason Comments New Patient Neck Pain Pain (Shoulder Pain) Right Arm Pain Right Hand Pain Specialty Diagnoses / Procedures Referred By Lawrence her Referred To Contact [facility] [place] Diagnoses Neck pain, chronic Procedures CONSULT TO [facility] OFFICE/OUTPATIENT [facility] 60-74 MINUTES Juany Roach APRN.SAMPLE STEAMER [address] [facility] [place] [address] Referral ID Status Reason Start Date Expiration Date Visits Requested Visits Authorized [id number] Pending Review PCP Requested Referral 10/28/2021 10/28/2022 1 1 Reason Onset Date Comments Refill Request 01/19/2022 Reason Comments Scheduling Procedure Reason Comments Appointment Virtual appointment Reason Comments Scheduling a procedure Reason Comments Appointment LVM to cancel appt f or today. Next appt is already scheuled. Refills will be called in today. Reason Onset Date Comments Refill Request 09/09/2022 Reason Onset Date Comments Refill Request 09/11/2022 Reason Onset Date Comments Refill Request 09/14/2022 Reason Comments Medication Problem Reason Onset Date Comments Refill Request 11/28/2022 Reason Onset Date Comments Refill Request 11/29/2022 Reason Comments Other Health Maintenance R eview Reason Onset Date Comments Refill Request 01/04/2023 Reason Comments Orders FOR RECORDS PERTAINING TO PATIENTS WHO ARE OR HAVE BEEN ENROLLED IN A CHEMICAL DEPENDENCY/SUBSTANCEABUSE PROGRAM, SOME INFORMATION MAY BE OMITTED. This clinical summary was aggregated from multiple sources. Caution should be exercised in using it in the provision of clinical care. This summary normalizes information from multiple sources, and as a consequence, information in this document may materially change the coding, format and clinical context of patient data. In addition, data may be omitted in some cases. CLINICAL DECISIONS SHOULD BE BASED ON THE PRIMARY CLINICAL RECORDS. [email or web address] provides no warranty or guarantee of the accuracy or completeness of information in this document.
[2023-03-21 22:41] LABS: Absolute Neutrophil Count 5.5 X10^3/uL (2.0-7.7); Basophil# 0.05 X10^3/uL; Basophil% 0.6 % (0-1); Eosinophils% 1.2 % (0-5); Hematocrit 42.4 % (37-47); Hemoglobin 14.1 g/dL (12.0-15.0); Lymphocyte % 24.5 % (19-41); Mean Corp Hgb Conc 33.3 g/dL (32-36); Mean Corpuscular Hgb 30.5 pg (27.0-32.0); Mean Corpuscular Volume 91.6 fL (81-99); Mean Platelet Vol. 8.9 fl (6.2-12.0); Monocyte# 0.47 X10^3/uL; Monocyte% 5.8 % (0-10); NRBC Flagged by Analyzer 0 % (0-5); Neutrophil # 5.52 X10^3/uL (2.7-7.7); Neutrophil % 67.5 % (47-70); Platelet Count 287 K/mm3 (150-450); RBC Distribution Width CV 13.3 % (11.6-14.6); RBC Distribution Width SD 44.9 fl (35.1-43.9); Red Blood Count 4.63 M/mm3 (4.2-5.4); White Blood Count 8.2 K/mm3 (4.4-11.0)
[2023-03-21 23:00] LABS: Anion Gap 7 (5-15); BUN 17 mg/dL (7-18); BUN/Creat Ratio 23.4 RATIO (10-20); Calcium,Total 9.3 mg/dL (8.5-10.1); Chloride 109 mmol/L (98-107); Creatinine, Serum 0.73 mg/dL (0.55-1.02); EST Glomerular Filtration Rate 88 mL/min (>60); Est Glom Filt Rate - Afr Amer 107 mL/min (>60); Estimated Creatinine Clearance 85.47 ml/min; Glucose 107 mg/dL (74-106); Potassium 3.9 mmol/L (3.5-5.1); Sodium Level 143 mmol/L (136-145); Troponin-I HS 10 pg/mL (3.0-54.0)
[2023-03-21 23:45] VITALS: BP 172/109; PULSE 86; RESP 17
[2023-03-21] MEDS: Ketorolac 30 MG/ML Syringe IV (23:52)
[2023-03-21] MEDS: Orphenadrine 60 MG/2 ML Ampul IV (23:53)
[2023-03-21] MEDS: Lorazepam 2 MG/ML WCH Syringe 1 MG IV (23:53)
[2023-03-22 00:27] VITALS: BP 158/99; PULSE 90; RESP 13
[2023-03-22] MEDS: dilTIAZem 25 MG/5 ML Vial 15 MG IV BOLUS (01:02)
[2023-03-22 01:24] VITALS: BP 133/89; PULSE 88; RESP 18
--- NOTE | 2023-03-22 01:38 | EX.ED.DYSGE1 ---
HPI History of Present Illness Chief Complaint: Hypertension Informant: patient and spouse/S.O. Narrative Narrative: Patient is a 53-year-old female with past medical history of hypertension currently on lisinopril as well as fibromyalgia and anxiety. She states has been a great deal of stress recently and this evening checked her blood pressure and it was elevated at approximately 170-180 systolically. She states that she has not taken any type of excessive stimulant or illicit drugs and has been taking her lisinopril as directed. She reports headache with this that came on gradually increased over the course of hours. Otherwise she denies any change in vision nausea vomiting abdominal pain chest pain or shortness of breath. However as she cannot get her blood pressure to reduce she comes to the hospital for evaluation [facility] Medical History (Updated 03/22/23 @ 05:[address] Eric Gauthier, ) Anxiety Chronic pain HTN (hypertension) Home Medications alprazolam 1 mg tablet 1 mg PO BID PRN PRN Anxiety 01/20/16 [History Last Taken Unknown] zolpidem 10 mg tablet 10 mg PO QHS PRN Sleep 03/31/20 [History Last Taken Unknown] milnacipran 100 mg tablet (Savella) 100 mg PO BID 06/05/20 [History Last Taken Unknown] buprenorphine 15 mcg/hour weekly transdermal patch 1 patch topical Q7D 03/21/23 [History Last Taken Unknown] cyclobenzaprine 10 mg tablet 10 mg PO Q8H PRN muscle spasm 03/21/23 [History Last Taken Unknown] lisinopril 20 mg tablet 20 mg PO DAILY 03/21/23 [History Last Taken Unknown] oxycodone 10 mg tablet 10 mg PO Q6H 03/21/23 [History Last Taken Unknown] diltiazem HCl 120 mg capsule,extended release 24 hr (Cartia XT) 120 mg PO DAILY 30 days #30 caps 03/22/23 [Rx Last Taken Unknown] Allergy/AdvReac Type Severity Reaction Status Date / Time tramadol [From Ultram] Allergy Vomiting Verified 03/21/23 21:22 acetaminophen AdvReac Upset Verified 03/21/23 21:22 [From Darvocet-N] Stomach propoxyphene AdvReac Upset Verified 03/21/23 21:22 [From Darvocet-N] Stomach Family History (Updated 03/21/23 @ 21:53 by Sara Marc) Mother Myocardial infarction Surgical History (Updated 03/21/23 @ 21:53 by Sara Marc) H/O neck surgery Social History (Updated 03/21/23 @ 21:53 by Sara Marc) household members: spouse housing: house current occupational status: unemployed Smoking Status: Heavy Smoker (>10/day) ROS ROS ED Constitutional Constitutional ED: Denies chills or fever(s) Eyes Eyes: Denies change in vision ENT ENT ED: Denies sore throat Cardiovascular Cardiovascular: Denies chest pain, palpitations or racing heartbeat Respiratory/Chest Respiratory/Chest: Denies cough or dyspnea Gastrointestinal Gastrointestinal: Denies abdominal pain, diarrhea, nausea or vomiting Genitourinary Genitourinary ED: Denies dysuria Musculoskeletal Musculoskeletal: Denies myalgias Integumentary Denies rash Neurologic Neurologic: Reports headache(s); Denies paresthesias or weakness Psychiatric Psychiatric: Reports anxiety Hematologic/Lymphatic Hematologic/Lymphatic: Denies easy bleeding or easy bruising EXAM Physical Exam Const Vital Signs: 03/21/23 21:23 03/21/23 21:50 03/21/23 21:54 Temperature 97.8 F Temperature Source Temporal Pulse Rate 115 H 96 Respiratory Rate 18 10 L Respiratory Effort Normal Respiratory Pattern Normal Blood Pressure 181/112 H 202/112 H Blood Pressure Mean 135 142 Pulse Ox 98 Oxygen Delivery Method Room Air 03/21/23 23:45 03/22/23 00:27 03/22/23 01:24 Temperature Temperature Source Pulse Rate 86 90 88 Respiratory Rate 17 13 18 Respiratory Effort Respiratory Pattern Blood Pressure 172/109 H 158/99 H 133/89 H Blood Pressure Mean 130 118 103 Pulse Ox Oxygen Delivery Method 03/22/23 01:52 Temperature 98 F Temperature Source Pulse Rate 84 Respiratory Rate 16 Respiratory Effort Respiratory Pattern Blood Pressure 133/89 H Blood Pressure Mean 103 Pulse Ox 98 Oxygen Delivery Method Positive well nourished and well developed General Appearance ED: well developed HEENT HEENT Narrative: Normocephalic atraumatic Eyes PERRL and EOMs intact bilaterally General Eye ED: Negative for scleral icterus Neck supple Neck Narrative: No nuchal rigidity or meningeal signs noted No carotid bruits present Resp normal respiratory effort and clear to auscultation bilaterally Cardio regular rate and regular rhythm Rate: other Other Details: Heart is regular rate and rhythm without murmurs rubs or gallops Radial and carotid pulses are equal and symmetric GI normal to inspection, nondistended, normoactive bowel sounds, non-tender, non-distended and no masses GI Narrative: No voluntary guarding or rigidity No pulsatile mass or fluid wave Auscultation: normoactive bowel sounds Palpation: soft Extremity normal to inspection Neuro oriented x3, CN's II-XII intact bilaterally and no sensory deficits noted Neuro Narrative: Cranial nerves II through XII are grossly intact without focal neurologic deficit No pronator drift no dysmetria no truncal ataxia NIH stroke scale score of 0 Sensorium / Orientation: alert Motor Exam: strength 5/5 throughout Psych mental status grossly normal Skin no rashes or lesions noted MDM MDM MDM Narrative Medical decision making narrative: Patient presented to the ER hypertensive and reported a headache that came on gradually increased over the course of hours but was otherwise symptom-free. However in order to ensure no signs of endorgan damage such as acute kidney injury acute coronary syndrome or a spontaneous subdural/subarachnoid hemorrhage that elected perform basic laboratory studies and a head CT. EKG was sinus rhythm and labs revealed no clinically significant findings. Head CT also revealed no acute signs of brain bleed or mass. Patient was medicated with labetalol clonidine and Cardizem. Her blood pressure reduced by over 25% and she remained Neurologically intact. Therefore at this time with improvement of her blood pressure and no signs of endorgan damage she is otherwise safe for discharge History & Record Review Discussion w/independent historian: Patient and Significant other Lab Data Attestation: I reviewed the patient's lab results. Labs: Laboratory Results - last 24 hr 03/21/23 22:30 WBC 8.2 RBC 4.63 Hgb 14.1 Hct 42.4 MCV 91.6 MCH 30.5 MCHC 33.3 RDW Std Deviation 44.9 H RDW Coeff of Jade 13.3 Plt Count 287 MPV 8.9 Immature Gran % (Auto) 0.400 Neut % (Auto) 67.5 Lymph % (Auto) 24.5 [place] % (Auto) 5.8 Eos % (Auto) 1.2 Baso % (Auto) 0.6 Absolute Neuts (auto) 5.5 Absolute Lymphs (auto) 2.00 Nucleated RBC % 0 Sodium 143 Potassium 3.9 Chloride 109 H Carbon Dioxide 27.0 Anion Gap 7 BUN 17 Creatinine 0.73 Estim Creat Clear Calc 85.47 Est GFR (MDRD) Af Amer 107 Est GFR (MDRD) Non-Af 88 BUN/Creatinine Ratio 23.4 H Glucose 107 H Calcium 9.3 Troponin I High Sens 10 Radiography Diagnostic Testing: Clinical Impression(s) from Imaging Studies Brain CT 03/21/23 22:11 IMPRESSION: Normal unenhanced CT scan of the brain. Electronically Signed: Jose R Coello MD at 23:33 EST , Discharge Plan Triage Chief Complaint: Hypertension ED Provider: Eric Gauthier Dx/Rx/DC Orders Clinical Impression: Accelerated hypertension, Anxiety, Fibromyalgia Instructions: ED Hypertension, Established Prescriptions: New diltiazem HCl [Cartia XT] 120 mg capsule,extended release 24hr 120 mg PO DAILY 30 Days Qty: 30 0RF No Action zolpidem 10 mg tablet 10 mg PO QHS PRN (Reason: Sleep) Patient Comments: TAKE 1 TABLET BY MOUTH ONCE DAILY AT BEDTIME NEEDED TO LAST 30 DAYS alprazolam 1 MG tablet 1 mg PO BID PRN PRN (Reason: Anxiety) Savella 100 mg Tablet 100 mg PO BID lisinopril 20 mg tablet 20 mg PO DAILY Patient Comments: Take 1 tablet by mouth once daily. buprenorphine 15 mcg/hour patch weekly 1 patch topical Q7D cyclobenzaprine 10 mg tablet 10 mg PO Q8H PRN (Reason: muscle spasm) Patient Comments: Take 1 tablet by mouth three times a day as needed. oxycodone 10 mg tablet 10 mg PO Q6H Primary Care Provider: Troy Amezquita Referrals: Troy Amezquita MD [Primary Care Provider] - Activity Restrictions/Additional Instructions: Please continue your lisinopril badly once a day Cardizem for improved blood pressure control. Continue to check your blood pressure and keep a log for your family doctor. Follow-up with your family doctor to discuss need for continued treatment and return to the ER should you have any further concerns Disposition Disposition: Home, Self Care Discharge Date/Time: 03/22/23 01:59
[2023-03-22 01:52] VITALS: BP 133/89; PULSE 84; RESP 16; TEMP 36.6; O2SAT 98
== END 2023-03-22 01:59 | disposition home or self-care (01) ==
PROVIDERS: Emergency Provider Emergency Medicine; PCP Family Medicine; Visit Provider Emergency Medicine
DX: I10 Essential (primary) hypertension (principal); F41.9 Anxiety disorder, unspecified; M79.7 Fibromyalgia; F17.200 Nicotine dependence, unspecified, uncomplicated; Z79.899 Other long term (current) drug therapy
CPT/HCPCS: 70450; 80048; 84484; 85025; 93005; 96374; 96375; 96376; 99283; A4216